=== PATIENT | female | born 1940 | race Caucasian/White ===

== ENCOUNTER 2017-06-13 12:04 | Emergency (ER) | payer MEDICARE ==
[~2017-06-13 12:04] MED LIST: ALPR.25 PO; CALC600T10 PO; CETI10 PO; CHOL1CAP6 PO; DUONI NEB; FE T325T PO; FURO20 PO; GAS-125C7 PO; K-TA10TA5 PO; LEVO88TA2 PO; METO2.5T7 PO; MUCI600T PO; PERI8.6T PO; PRAV40 PO; PRED10 PO; PROB1TAB PO; STOO100T; TAB-TAB PO; Z.0.OXYGEN INH; [UNRECOGNIZED DRUG - CODE] PO
[2017-06-13 12:15] VITALS: BP 131/46; PULSE 116; RESP 22; TEMP 100.9; O2SAT 82; O2SAT 94
[2017-06-13] MEDS ORDERED: FURO1TAB62 PO ×2 (12:22)
[2017-06-13] MEDS ORDERED: LEVO88TA2 PO (12:22)
[2017-06-13] MEDS ORDERED: MONT10TA4 PO ×2 (12:22)
[2017-06-13] MEDS ORDERED: CHOL1TAB42 PO ×2 (12:22)
[2017-06-13] MEDS ORDERED: PRED5TAB PO ×2 (12:22)
[2017-06-13] MEDS ORDERED: FLUT1SPR5 EACH NARE ×2 (12:22)
[2017-06-13] MEDS ORDERED: COLA100C5 PO ×2 (12:22)
[2017-06-13] MEDS ORDERED: ALPR0.25 PO ×2 (12:22)
[2017-06-13] MEDS ORDERED: CLAR10CA3 PO ×2 (12:22)
[2017-06-13] MEDS ORDERED: AMIO200T PO ×2 (12:22)
[2017-06-13] MEDS ORDERED: DILT120C50 PO ×2 (12:22)
[2017-06-13] MEDS ORDERED: VENTAER INH ×2 (12:22)
[2017-06-13] MEDS ORDERED: APIX2.5T PO ×2 (12:22)
[2017-06-13] MEDS ORDERED: POTA10CA PO ×2 (12:22)
[2017-06-13] MEDS ORDERED: IRON18TA PO ×2 (12:22)
[2017-06-13] MEDS ORDERED: PRAV40TA2 PO ×2 (12:22)
[2017-06-13] MEDS ORDERED: FAMO1TAB37 PO ×2 (12:22)
[2017-06-13 12:37] VITALS: O2SAT 92
[2017-06-13 12:38] VITALS: BP 117/59; PULSE 107; RESP 18; TEMP 101; O2SAT 92
--- NOTE | 2017-06-13 12:41 | PD ---
HPI Chief Complaint: Respiratory Symptoms Time Seen by Provider: 12:17 Travel History International Travel<30 days: No Contact w/Intl Traveler<30days: No Traveled to known affect area: No History of Present Illness HPI The patient was seen and examined in the presence of the nurse. This patient complains of shortness of breath. Severity is moderate. Duration 3 days. She is oxygen dependent COPD and CHF. She is on Eliquis for A. fib. She has increased swelling in her legs as well as some redness and warmth in the left lower leg for a few days near where she got a cut. She no longer smokes. She denies fever or productive cough. No alleviating factors. 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) Psychiatric: No Reproductive: No Respiratory: Yes (SEVERE COPD, ON O2 2 LITERS 24/7, HX OF PNEUMONIA, HX OF SMOKING) Myocardial Infarction: No Renal Failure: No Seizures: No Sleep Apnea: No Thyroid Disease: Yes (HYPO) Ulcer: No ?: Not Menopausal: Yes Past Surgical History Abdominal Surgery: Yes (CHOLECYSTECTOMY 1972) AICD: No Body Medical Devices: lens bilat Cardiac Surgery: No Cholecystectomy: Yes Ear Surgery: No Endocrine Surgery: No Eye Surgery: Yes (LISSETTE CATARACT SURGERY) Genitourinary Surgery: No Gynecologic Surgery: No Joint Replacement: No Oral Surgery: No Pacemaker: No Thoracic Surgery: Yes (SPONTANEOUS PNEUMOTHORAX X 2, CHEST TUBE) Social History Alcohol Use: Yes (occ) Tobacco Use: No (QUIT IN 2000) Substance Use: No Allergies-Medications (Allergen,Severity, Reaction): Coded Allergies: Sulfa (Sulfonamide Antibiotics) (Unverified Allergy, Severe, Hives, ) cefuroxime (Unverified Allergy, Severe, Hives, 01/25/17) ciprofloxacin (Unverified Allergy, Mild, RASH, 01/25/17) Reported Meds & Prescriptions Reported Meds & Active Scripts Active Reported Lasix (Furosemide) 20 Mg Tab 20 Mg PO DAILY Flonase Nasal [place] (Fluticasone Nasal [place]) 50 Mcg/Act [place] 50 Mcg EACH NARE DAILY Pepcid (Famotidine) 20 Mg Tab 20 Mg PO HS Colace (Docusate Sodium) 100 Mg Capsule 100 Mg PO DAILY Diltiazem CD 24 HR 120 Mg Caper 120 Mg PO DAILY Claritin (Loratadine) 10 Mg Cap 10 Mg PO DAILY Vitamin D-3 (Cholecalciferol) 2,000 Unit Tab 1 Tab PO BID Prednisone 5 Mg Tab 5 Mg PO DAILY Pravastatin 40 Mg Tab 40 Mg PO HS Potassium Chloride ER (Potassium Chloride) 10 Meq Cap 10 Meq PO BID Montelukast (Montelukast Sodium) 10 Mg Tab 10 Mg PO HS Levothyroxine (Levothyroxine Sodium) 88 Mcg Tab 88 Mcg PO DAILY Iron (Ferrous Sulfate) 18 Mg Tab 65 Mg PO Eliquis (Apixaban) 2.5 Mg Tab 2.5 Mg PO BID Amiodarone (Amiodarone HCl) 200 Mg Tab 200 Mg PO DAILY Alprazolam 0.25 Mg Tab 0.25 Mg PO TID PRN Ventolin Hfa 18 GM Inh (Albuterol Sulfate) 90 Mcg/Act Aer 2 Puff INH Q4H PRN Review of Systems General / Constitutional: No: Fever Eyes: No: Visual changes HENT: No: Headaches Cardiovascular: Positive: Edema, No: Chest Pain or Discomfort Respiratory: Positive: Shortness of Breath Gastrointestinal: No: Abdominal Pain Genitourinary: No: Dysuria Musculoskeletal: Positive: Edema, No: Pain Skin: No Rash Neurologic: No: Weakness Psychiatric: No: Depression Endocrine: No: Polydipsia Hematologic/Lymphatic: No: Easy Bruising Physical Exam Narrative GENERAL: Thin elderly well-developed patient in no apparent distress. SKIN: Focused skin assessment reveals no rash and nodules. Skin is Warm and dry. HEAD: Atraumatic. Normocephalic. EYES: Pupils equal and round. No scleral icterus. No injection or drainage. ENT: No nasal bleeding or discharge. Mucous membranes pink and moist. NECK: Trachea midline. No JVD. CARDIOVASCULAR: Regular rate and rhythm. No murmur appreciated. RESPIRATORY: No accessory muscle use. Diminished breath sounds throughout with basilar crackles. No wheezing Breath sounds equal bilaterally. GASTROINTESTINAL: Abdomen soft, non-tender, nondistended. Hepatic and splenic margins not palpable. MUSCULOSKELETAL: No obvious deformities. No clubbing. No cyanosis. Pitting edema in the feet and ankles bilaterally. There is a wound in the left anterior distal tibia region. There is some redness and warmth around that. No calf tenderness NEUROLOGICAL: Awake and alert. No obvious cranial nerve deficits. Motor grossly within normal limits. Normal speech. PSYCHIATRIC: Appropriate mood and affect; insight and judgment normal. Data Data Last Documented VS Vital Signs Date Time Temp Pulse Resp B/P (MAP) Pulse Ox O2 Delivery O2 Flow Rate FiO2 06/13/17 13:42 94 Nasal Cannula 2.00 06/13/17 12:38 101.0 107 18 117/59 (78) Orders Orders Complete Blood Count With Diff (06/13/17 12:34) Basic Metabolic Panel (Bmp) (06/13/17 12:34) B-Type Natriuretic Peptide (06/13/17 12:34) Iv Access Insert/Monitor (06/13/17 12:34) Electrocardiogram (06/13/17 12:34) Ecg Monitoring (06/13/17 12:34) Oximetry (06/13/17 12:34) Oxygen Administration (06/13/17 12:34) Chest, Single Ap (06/13/17 12:34) Sodium Chloride 0.9% Flush (Ns Flush) (06/13/17 12:45) Furosemide Inj (Lasix Inj) (06/13/17 12:45) Albuterol-Ipratropium Neb (Duoneb Neb) (06/13/17 13:45) Albuterol-Ipratropium Neb (Duoneb Neb) (06/13/17 13:45) Arterial Blood Gas (Abg) (06/13/17 ) Potassium Chloride Eff (K-Lyte Cl Eff) (06/13/17 14:15) Doxycycline (Vibramycin) (06/13/17 14:15) Labs Laboratory Tests Test 06/13/17 12:51 06/13/17 14:15 White Blood Count 20.0 TH/MM3 Red Blood Count 3.96 MIL/MM3 Hemoglobin 11.5 GM/DL Hematocrit 36.5 % Mean Corpuscular Volume 92.2 FL Mean Corpuscular Hemoglobin 29.1 PG Mean Corpuscular Hemoglobin Concent 31.6 % Red Cell Distribution Width 12.4 % Platelet Count 157 TH/MM3 Mean Platelet Volume 6.7 FL Neutrophils (%) (Auto) 92.8 % Lymphocytes (%) (Auto) 1.3 % Monocytes (%) (Auto) 3.2 % Eosinophils (%) (Auto) 0.1 % Basophils (%) (Auto) 2.6 % Neutrophils # (Auto) 18.6 TH/MM3 Lymphocytes # (Auto) 0.3 TH/MM3 Monocytes # (Auto) 0.6 TH/MM3 Eosinophils # (Auto) 0.0 TH/MM3 Basophils # (Auto) 0.5 TH/MM3 CBC Comment AUTO DIFF Differential Total Cells Counted 100 Neutrophils % (Manual) 82 % Band Neutrophils % 14 % Lymphocytes % 2 % Monocytes % 2 % Neutrophils # (Manual) 19.2 TH/MM3 Differential Comment FINAL DIFF MANUAL Platelet Estimate NORMAL Platelet Morphology Comment NORMAL Red Cell Morphology Comment NORMAL Blood Urea Nitrogen 26 MG/DL Creatinine 1.10 MG/DL Random Glucose 97 MG/DL Calcium Level 8.6 MG/DL Sodium Level 138 MEQ/L Potassium Level 2.6 MEQ/L Chloride Level 88 MEQ/L Carbon Dioxide Level 44.5 MEQ/L Anion Gap 6 MEQ/L Estimat Glomerular Filtration Rate 48 ML/MIN B-Type Natriuretic Peptide 53 PG/ML Blood Gas Puncture Site LT RADIAL Blood Gas Patient Temperature 98.6 Blood Gas HCO3 47 mmol/L Blood Gas Base Excess 21.7 mmol/L Blood Gas Oxygen Saturation 90 % Arterial Blood pH 7.46 Arterial Blood Partial Pressure CO2 68 mmHG Arterial Blood Partial Pressure O2 65 mmHG Arterial Blood Oxygen Content 14.4 Vol % Arterial Blood Carboxyhemoglobin 2.1 % Arterial Blood Methemoglobin 1.1 % Blood Gas Hemoglobin 11.4 G/DL Oxygen Delivery Device NASAL CANNULA Blood Gas Liter Flow 2 L/M MDM Medical Decision Making Medical Screen Exam Complete: Yes Emergency Medical Condition: Yes Medical Record Reviewed: Yes Differential Diagnosis CHF exacerbation, COPD, pneumonia Narrative Course I have reviewed the patient's electronic medical record. IV placed Review her 40 mg IV Lasix Patient was 3 L around the clock at home which she is currently wearing and in the low 90s Reviewed her chest x-ray which is clear, no pulmonary edema or infiltrate CBC shows leukocytosis Metabolic profile shows significant elevated bicarbonate and hypokalemia which is replaced orally and on prescription BNP is low at 53 I gave her a couple of nebulizer treatments I reviewed her ABG which shows pH 7.46 with elevated CO2 and bicarbonate This patient has chronic respiratory acidosis but metabolically compensated She is not acidemic at all On recheck she does not look short of breath I think she is at baseline Her last ABG I compared his from 10 years old I gave her potassium replacement and a start of antibiotic therapy for mild left leg cellulitis. She does not look septic or toxic. I don't really think she needs to be inpatient at this time Should she worsen that could change She has symmetric leg edema but no pulmonary edema She has significant chronic problems which are not going to be fixable in the ER or hospital but manageable as best she can do long-term Diagnosis Primary Impression: COPD (chronic obstructive pulmonary disease) Qualified Codes: J44.9 - Chronic obstructive pulmonary disease, unspecified Additional Impressions: Leg edema Left leg cellulitis Hypokalemia Additional Instructions: The patient was advised to follow up with their physician and return if they worsen. Take antibiotics for one week Take one time her placement potassium dose but continue her long-term potassium therapy The patient was advised to follow up with their physician and return if they worsen. Med/Other Pt SpecificInfo: Prescription(s) given Disposition: DISCHARGE HOME Condition: Stable Paul Kidd MD Jun 13, 2017 12:41
[2017-06-13] MEDS ORDERED: FUROSEMIDE 40 MG/4 ML VIAL IVP ONE (12:45)
[2017-06-13] MEDS ORDERED: SODIUM CHLORIDE 0.9% FLUSH 10 ML FLUSH IVF PRN (12:45)
[2017-06-13 13:06] LABS: AUTOMATED NEUTROPHIL # 18.6 TH/MM3 (1.8-7.7); BASOPHIL # 0.5 TH/MM3 (0-0.2); BASOPHIL % 2.6 % (0.0-2.0); EOSINOPHIL % 0.1 % (0.0-4.0); HEMATOCRIT 36.5 % (35.0-46.0); HEMOGLOBIN 11.5 GM/DL (11.6-15.3); LYMPH % 1.3 % (9.0-44.0); LYMPHOCYTE # 0.3 TH/MM3 (1.0-4.8); MEAN CELL VOLUME 92.2 FL (80.0-100.0); MEAN CORPUSCULAR HEMOGLOBIN 29.1 PG (27.0-34.0); MEAN CORPUSCULAR HGB CONC 31.6 % (32.0-36.0); MEAN PLATELET VOLUME 6.7 FL (7.0-11.0); MONO % 3.2 % (0.0-8.0); MONOCYTE # 0.6 TH/MM3 (0-0.9); NEUT % 92.8 % (16.0-70.0); PLATELET COUNT 157 TH/MM3 (150-450); RED BLOOD COUNT 3.96 MIL/MM3 (4.00-5.30); RED CELL DISTRIBUTION WIDTH 12.4 % (11.6-17.2)
--- NOTE | 2017-06-13 13:06 | RADRPT ---
EXAM DATE/TIME: 06/13/2017 12:40 [facility] COMPARISON: CHEST SINGLE AP, April 07, 2014, 21:37. INDICATIONS : Shortness of breath. MEDICAL HISTORY : Chronic obstructive pulmonary disease. SURGICAL HISTORY : None. ENCOUNTER: Initial ACUITY: 1 day PAIN SCORE: 0/10 LOCATION: Bilateral chest FINDINGS: The heart size is normal. The lungs are clear. No effusion is seen. Incidental note is made of a azyg ous fissure which is a normal variant. CONCLUSION: No acute disease. Dominik Delgadillo MD on June 13, 2017 at 13:04 Board Certified Radiologist. This report was verified electronically.
[2017-06-13 13:34] LABS: CALCIUM 8.6 MG/DL (8.5-10.1); CREATININE 1.1 MG/DL (0.50-1.00)
[2017-06-13 13:35] LABS: BICARBONATE 44.5 MEQ/L (21.0-32.0)
[2017-06-13 13:38] LABS: BANDS 14 % (0-6); LYMPHOCYTES 2 % (9-44); MONOCYTES 2 % (0-8); NEUTROPHIL # MANUAL DIFF 19.2 TH/MM3 (1.8-7.7); POLYS (SEG NEUTROPHILS) 82 % (16-70)
[2017-06-13 13:42] VITALS: O2SAT 94
[2017-06-13] MEDS ORDERED: RESP: ALBUTEROL 2.5 MG/IPRATROPIUM 0.5 MG NEB (SCH) NEB ONE ×2 (13:45)
[2017-06-13] MEDS ORDERED: POTASSIUM CHLORIDE 25 MEQ EFFERVESCENT TAB PO ONE (14:15)
[2017-06-13] MEDS ORDERED: DOXYCYCLINE HYCLATE 100 MG CAP PO ONE (14:15)
[2017-06-13] MEDS ORDERED: DOXY100C PO (14:39)
[2017-06-13] MEDS ORDERED: KLORCONEF PO (14:39)
[2017-06-13 15:00] VITALS: BP 100/51; PULSE 115; RESP 20; O2SAT 93
== END 2017-06-13 15:41 | disposition home or self-care (01) ==
LOC: PHED 12:04
DX: J44.9 Chronic obstructive pulmonary disease, unspecified (principal); R60.0 Localized edema; L03.116 Cellulitis of left lower limb; E87.6 Hypokalemia; D72.829 Elevated white blood cell count, unspecified; I50.9 Heart failure, unspecified; I48.91 Unspecified atrial fibrillation; I10 Essential (primary) hypertension; E07.9 Disorder of thyroid, unspecified; K21.9 Gastro-esophageal reflux disease without esophagitis; E78.00 Pure hypercholesterolemia, unspecified; Z99.81 Dependence on supplemental oxygen; Z79.01 Long term (current) use of anticoagulants
CPT/HCPCS: 36600; 71045; 80048; 82805; 83880; 85007; 85027; 94640; 94664; 96374; 99284; J1940

== ENCOUNTER 2017-06-17 18:50 | Inpatient (IN) | payer MEDICARE ==
[~2017-06-17] VITALS: Ht 162.6 cm; Wt 42.9 kg
[~2017-06-17 18:50] MED LIST changes: +ALPR0.25 PO; +AMIO200T PO; +APIX2.5T PO; +CHOL1TAB42 PO; +CLAR10CA3 PO; +COLA100C5 PO; +DILT120C50 PO; +DOXY100C PO; +FAMO1TAB37 PO; +FLUT1SPR5 EACH NARE; +FURO1TAB62 PO; +IRON18TA PO; +KLORCONEF PO; +MONT10TA4 PO; +POTA10CA PO; +PRAV40TA2 PO; +PRED5TAB PO; +VENTAER INH
[2017-06-17 18:58] VITALS: BP 133/60; PULSE 94; RESP 18; TEMP 97.8; O2SAT 93
--- NOTE | 2017-06-17 19:19 | PD ---
HPI Chief Complaint: Skin Problem Time Seen by Provider: 19:07 Travel History International Travel<30 days: No Contact w/Intl Traveler<30days: No Traveled to known affect area: No History of Present Illness HPI The patient is a 76-year-old female that had cellulitis and was treated with doxycycline on the first of this month. She is taking her medications correctly but the area of cellulitis in both legs is spreading, becoming more painful and shows increased swelling. The patient is on a course for atrial fibrillation. She states she is elevating the legs and this makes him feel much better. She denies any fever. PFSH Past Medical History Arthritis: No Asthma: Yes Autoimmune Disease: No Heart Rhythm Problems: No Cancer: No Cardiovascular Problems: No High Cholesterol: Yes Chest Pain: No Congestive Heart Failure: No COPD: Yes Cerebrovascular Accident: No Diabetes: No Diminished Hearing: No Endocrine: Yes Gastrointestinal Disorders: Yes (ACID REFLUX) GERD: Yes Glaucoma: No Genitourinary: No Headaches: No Hepatitis: No Hiatal Hernia: No Hypertension: Yes Immune Disorder: No Implanted Vascular Access Dvce: Yes Kidney Stones: No Musculoskeletal: Yes (OSTEOPOROSIS) Neurologic: Yes (NUMBNESS AND TINGLING R HAND) Psychiatric: No Reproductive: No Respiratory: Yes (COPD, WEARS O2 CONTINUOUSLY) Myocardial Infarction: No Renal Failure: No Seizures: No Sleep Apnea: No Thyroid Disease: Yes (HYPO) Ulcer: No ?: Not Menopausal: Yes Past Surgical History Abdominal Surgery: Yes (CHOLECYSTECTOMY 1972) AICD: No Body Medical Devices: lens bilat Cardiac Surgery: No Cholecystectomy: Yes Ear Surgery: No Endocrine Surgery: No Eye Surgery: Yes (LISSETTE CATARACT SURGERY) Genitourinary Surgery: No Gynecologic Surgery: No Insulin Pump: No Joint Replacement: No Neurologic Surgery: No Oral Surgery: No Pacemaker: No Thoracic Surgery: Yes (SPONTANEOUS PNEUMOTHORAX X 2, CHEST TUBE) Other Surgery: Yes Social History Alcohol Use: Yes (occ) Tobacco Use: No (QUIT IN 2000) Substance Use: No Allergies-Medications (Allergen,Severity, Reaction): Coded Allergies: Sulfa (Sulfonamide Antibiotics) (Verified Allergy, Severe, Hives, 06/17/17) cefuroxime (Verified Allergy, Severe, Hives, 06/17/17) ciprofloxacin (Verified Allergy, Mild, RASH, 06/17/17) Reported Meds & Prescriptions Reported Meds & Active Scripts Active Doxycycline Hyclate 100 Mg Cap 100 Mg PO BID Reported Lasix (Furosemide) 20 Mg Tab 20 Mg PO DAILY Flonase Nasal [place] (Fluticasone Nasal [place]) 50 Mcg/Act [place] 50 Mcg EACH NARE DAILY Pepcid (Famotidine) 20 Mg Tab 20 Mg PO HS Colace (Docusate Sodium) 100 Mg Capsule 100 Mg PO DAILY Diltiazem CD 24 HR 120 Mg Caper 120 Mg PO DAILY Claritin (Loratadine) 10 Mg Cap 10 Mg PO DAILY Vitamin D-3 (Cholecalciferol) 2,000 Unit Tab 1 Tab PO BID Prednisone 5 Mg Tab 5 Mg PO DAILY Pravastatin 40 Mg Tab 40 Mg PO HS Potassium Chloride ER (Potassium Chloride) 10 Meq Cap 10 Meq PO BID Montelukast (Montelukast Sodium) 10 Mg Tab 10 Mg PO HS Levothyroxine (Levothyroxine Sodium) 88 Mcg Tab 88 Mcg PO DAILY Iron (Ferrous Sulfate) 18 Mg Tab 65 Mg PO Eliquis (Apixaban) 2.5 Mg Tab 2.5 Mg PO BID Amiodarone (Amiodarone HCl) 200 Mg Tab 200 Mg PO DAILY Alprazolam 0.25 Mg Tab 0.25 Mg PO TID PRN Ventolin Hfa 18 GM Inh (Albuterol Sulfate) 90 Mcg/Act Aer 2 Puff INH Q4H PRN Review of Systems Except as stated in HPI: all other systems reviewed are Neg Physical Exam Narrative GENERAL: The patient is alert, oriented 3 and slight apparent distress with her cellulitis of both legs. Her vital signs are normal. SKIN: Focused skin assessment warm/dry. There is erythema of both lower legs, left greater than right. In addition, despite the antibiotic several dark, apparent blood filled, blebs appeared on both legs. One on the left leg has ruptured and appears healing. These range in size from 2-3 cm in diameter. No lymphadenitis is noted. HEAD: Atraumatic. Normocephalic. EYES: Pupils equal and round. No scleral icterus. No injection or drainage. ENT: No nasal bleeding or discharge. Mucous membranes pink and moist. NECK: Trachea midline. No JVD. CARDIOVASCULAR: Regular rate and rhythm. No murmur appreciated. RESPIRATORY: No accessory muscle use. Clear to auscultation. Breath sounds equal bilaterally. GASTROINTESTINAL: Abdomen soft, non-tender, nondistended. Hepatic and splenic margins not palpable. MUSCULOSKELETAL: No obvious deformities. No clubbing. No cyanosis. No edema. NEUROLOGICAL: Awake and alert. No obvious cranial nerve deficits. Motor grossly within normal limits. Normal speech. PSYCHIATRIC: Appropriate mood and affect; insight and judgment normal. Data Data Last Documented VS Vital Signs Date Time Temp Pulse Resp B/P (MAP) Pulse Ox O2 Delivery O2 Flow Rate FiO2 06/17/17 19:16 89 20 06/17/17 18:58 97.8 133/60 (84) 93 Orders Orders Electrocardiogram (06/17/17 19:13) Complete Blood Count With Diff (06/17/17 19:13) Comprehensive Metabolic Panel (06/17/17 19:13) B-Type Natriuretic Peptide (06/17/17 19:13) Urinalysis - C+S If Indicated (06/17/17 19:13) Potassium Chloride (Kcl) (06/17/17 20:15) Vancomycin Inj (Vancomycin Inj) (06/17/17 20:15) Admit Order (Ed Use Only) (06/17/17 20:51) Labs Laboratory Tests Test 06/17/17 19:40 White Blood Count 7.0 TH/MM3 Red Blood Count 3.91 MIL/MM3 Hemoglobin 11.6 GM/DL Hematocrit 36.3 % Mean Corpuscular Volume 93.1 FL Mean Corpuscular Hemoglobin 29.8 PG Mean Corpuscular Hemoglobin Concent 32.0 % Red Cell Distribution Width 11.9 % Platelet Count 188 TH/MM3 Mean Platelet Volume 6.6 FL Neutrophils (%) (Auto) 86.8 % Lymphocytes (%) (Auto) 6.6 % Monocytes (%) (Auto) 6.0 % Eosinophils (%) (Auto) 0.5 % Basophils (%) (Auto) 0.1 % Neutrophils # (Auto) 6.1 TH/MM3 Lymphocytes # (Auto) 0.5 TH/MM3 Monocytes # (Auto) 0.4 TH/MM3 Eosinophils # (Auto) 0.0 TH/MM3 Basophils # (Auto) 0.0 TH/MM3 CBC Comment DIFF FINAL Differential Comment Blood Urea Nitrogen 36 MG/DL Creatinine 1.40 MG/DL Random Glucose 98 MG/DL Total Protein 7.4 GM/DL Albumin 3.2 GM/DL Calcium Level 9.3 MG/DL Alkaline Phosphatase 87 U/L Aspartate Amino Transf (AST/SGOT) 34 U/L Alanine Aminotransferase (ALT/SGPT) 36 U/L Total Bilirubin 0.4 MG/DL Sodium Level 136 MEQ/L Potassium Level 3.3 MEQ/L Chloride Level 88 MEQ/L Carbon Dioxide Level 43.4 MEQ/L Anion Gap 5 MEQ/L Estimat Glomerular Filtration Rate 37 ML/MIN B-Type Natriuretic Peptide 18 PG/ML MDM Medical Decision Making Medical Screen Exam Complete: Yes Emergency Medical Condition: Yes Medical Record Reviewed: Yes Differential Diagnosis Cellulitis, abscess, lymphadenitis Narrative Course The patient has failed outpatient treatment for cellulitis. The cellulitis has grown in size, become more painful and the swelling has increased. I discussed the patient with Dr. Woodrow Macias, the patient will be admitted to her. Physician Communication Physician Communication I discussed the patient with Dr. Woodrow Macias. Diagnosis Primary Impression: Bilateral lower leg cellulitis Admitting Information Admitting Physician Requests: Admit Mayo Christianson MD Jun 17, 2017 19:19
[2017-06-17 19:51] LABS: AUTOMATED NEUTROPHIL # 6.1 TH/MM3 (1.8-7.7); BASOPHIL % 0.1 % (0.0-2.0); EOSINOPHIL % 0.5 % (0.0-4.0); HEMATOCRIT 36.3 % (35.0-46.0); HEMOGLOBIN 11.6 GM/DL (11.6-15.3); LYMPH % 6.6 % (9.0-44.0); LYMPHOCYTE # 0.5 TH/MM3 (1.0-4.8); MEAN CELL VOLUME 93.1 FL (80.0-100.0); MEAN CORPUSCULAR HEMOGLOBIN 29.8 PG (27.0-34.0); MEAN PLATELET VOLUME 6.6 FL (7.0-11.0); MONOCYTE # 0.4 TH/MM3 (0-0.9); NEUT % 86.8 % (16.0-70.0); PLATELET COUNT 188 TH/MM3 (150-450); RED BLOOD COUNT 3.91 MIL/MM3 (4.00-5.30); RED CELL DISTRIBUTION WIDTH 11.9 % (11.6-17.2)
[2017-06-17 20:01] LABS: CHLORIDE 88 MEQ/L (98-107); SODIUM (NA) 136 MEQ/L (136-145)
[2017-06-17 20:04] LABS: CALCIUM 9.3 MG/DL (8.5-10.1)
[2017-06-17 20:05] LABS: ALBUMIN 3.2 GM/DL (3.4-5.0); BICARBONATE 43.4 MEQ/L (21.0-32.0); BLOOD UREA NITROGEN 36 MG/DL (7-18); GLUCOSE,RANDOM 98 MG/DL (74-106)
[2017-06-17 20:08] LABS: ALT (GPT) 36 U/L (10-53); AST (GOT) 34 U/L (15-37); GLOMERULAR FILTRATION RATE 37 ML/MIN (>89)
[2017-06-17 20:09] LABS: TOTAL BILIRUBIN ADULT 0.4 MG/DL (0.2-1.0); TOTAL PROTEIN 7.4 GM/DL (6.4-8.2)
[2017-06-17 20:11] LABS: ALKALINE PHOSPHATASE 87 U/L (45-117)
[2017-06-17] MEDS ORDERED: VANCOMYCIN INJ 1,000 MG in SODIUM CHLOR 0.9% 250 ML INJ 250 ML IV ONE (20:15)
[2017-06-17] MEDS ORDERED: POTASSIUM CHLORIDE 20 MEQ CONTROLLED RELEASE TAB PO ONE (20:15)
[2017-06-17 21:00] VITALS: BP 142/70; PULSE 85; RESP 16; O2SAT 96
[2017-06-17 21:24] LABS: BILIRUBIN, URINE NEG (NEG); BLOOD, URINE SMALL (NEG); GLUCOSE,URINE NEG (NEG); KETONE, URINE NEG (NEG); NITRITE,URINE NEG (NEG); URINE LEUKOCYTE ESTERASE NEG (NEG)
[2017-06-17 21:33] LABS: URINE COLOR YELLOW (YELLW/STRAW); WBC, URINE 0-2 /hpf (0-5)
[2017-06-17 21:34] LABS: SQUAMOUS EPITHELIAL CELL URINE 0-5 /hpf (0-5)
[2017-06-17] MEDS ORDERED: Vancomycin Consult Pharmacy 1 EA OTHER SCH (21:45)
[2017-06-17] MEDS ORDERED: ACETAMINOPHEN 500 MG CPLT PO PRN (21:45)
[2017-06-17 22:10] VITALS: BP 138/66; PULSE 89; RESP 18; O2SAT 98
[2017-06-17] MEDS: RESP: ALBUTEROL 2.5 MG/IPRATROPIUM 0.5 MG NEB (SCH) NEB (23:00)
[2017-06-17 23:07] VITALS: O2SAT 99
[2017-06-17] MEDS: PRAVASTATIN SOD 40 MG TAB PO SCH (23:20)
[2017-06-18] MEDS: CHOLECALCIFEROL (VIT D3) 1000 UNIT TAB PO SCH ×3 (00:39→20:50)
[2017-06-18 01:13] VITALS: BP 110/56; PULSE 82; RESP 16; TEMP 97; O2SAT 91
[2017-06-18] MEDS: RESP: ALBUTEROL 2.5 MG/IPRATROPIUM 0.5 MG NEB (SCH) NEB ×3 (02:58→14:58)
[2017-06-18] MEDS: ALPRAZolam 0.25 MG TAB PO PRN ×2 (06:16→22:52)
[2017-06-18] MEDS: RESP: ALBUTEROL 2.5 MG/IPRATROPIUM 0.5 MG NEB (PRN) NEB ×2 (06:23→22:01)
[2017-06-18 06:42] LABS: BASOPHIL % 0.3 % (0.0-2.0); EOSINOPHIL % 0.4 % (0.0-4.0); HEMATOCRIT 31.7 % (35.0-46.0); HEMOGLOBIN 9.9 GM/DL (11.6-15.3); LYMPH % 8.8 % (9.0-44.0); LYMPHOCYTE # 0.6 TH/MM3 (1.0-4.8); MEAN CELL VOLUME 92.6 FL (80.0-100.0); MEAN CORPUSCULAR HEMOGLOBIN 28.9 PG (27.0-34.0); MEAN CORPUSCULAR HGB CONC 31.3 % (32.0-36.0); MEAN PLATELET VOLUME 6.8 FL (7.0-11.0); MONO % 8.3 % (0.0-8.0); MONOCYTE # 0.6 TH/MM3 (0-0.9); NEUT % 82.2 % (16.0-70.0); PLATELET COUNT 186 TH/MM3 (150-450); RED BLOOD COUNT 3.43 MIL/MM3 (4.00-5.30); RED CELL DISTRIBUTION WIDTH 12.3 % (11.6-17.2); WHITE BLOOD COUNT 7.2 TH/MM3 (4.0-11.0)
[2017-06-18 06:51] LABS: BICARBONATE 44.5 MEQ/L (21.0-32.0); CALCIUM 8.8 MG/DL (8.5-10.1)
[2017-06-18 06:54] LABS: CREATININE 1.2 MG/DL (0.50-1.00)
[2017-06-18] MEDS ORDERED: LEVOTHYROXINE SODIUM 88 MCG TAB PO SCH (07:00)
[2017-06-18 08:56] VITALS: BP 112/55; PULSE 80; RESP 16; TEMP 97.3; O2SAT 94
[2017-06-18] MEDS: FLUTICASONE PROPIONATE 50 MCG/ACT 16 GM NASAL SPRAY EACH NARE SCH (09:00)
[2017-06-18] MEDS ORDERED: POTASSIUM CHLORIDE 10 MEQ CAP PO SCH (09:00)
[2017-06-18] MEDS: SODIUM CHLORIDE 0.9% FLUSH 10 ML FLUSH IV FLUSH SCH ×2 (09:55→20:50)
[2017-06-18] MEDS: DILTIAZEM-CD 120 MG CAP ER PO SCH (09:55)
[2017-06-18] MEDS: DOCUSATE SODIUM 100 MG CAP PO SCH (09:55)
[2017-06-18] MEDS: AMIODARONE 200 MG TAB PO SCH (09:56)
[2017-06-18] MEDS: APIXABAN 2.5 MG TABLET PO SCH ×2 (09:56→20:50)
[2017-06-18] MEDS: LORATADINE 10 MG TAB PO SCH (09:56)
[2017-06-18] MEDS: predniSONE 5 MG TAB PO SCH (09:56)
[2017-06-18] MEDS: FUROSEMIDE 20 MG TAB PO SCH (09:56)
[2017-06-18] MEDS: POTASSIUM CHLORIDE 10 MEQ CONTROLLED RELEASE TAB PO SCH ×2 (09:56→20:50)
--- NOTE | 2017-06-18 12:47 | EKG ---
Date Performed: 06/17/2017 Time Performed: 19:27:24 PTAGE: 76 years EKG: BASELINE ARTIFACT MAKES IT INTERPRETATION DIFFICULT THERE APPEARS TO BE Sinus rhythm CANNOT INTERPRET ST-T SEGMENT DUE TO THE MARKED UNDULATIONS OF THE BASELINES. Compared to previous t racing, no gross changes have occurred, but an EKG of improved quality would be of benefit. BORDERLIN E ECG PREVIOUS TRACING : 04/07/2014 22.49 DOCTOR: Jamey Guthrie Interpretating Date/Time 06/18/2017 12:47:14
[2017-06-18] MEDS ORDERED: ACETAMINOPHEN/HYDROcodone 325 MG/5 MG TAB PO PRN (13:45)
[2017-06-18 14:03] VITALS: BP 119/62; PULSE 79; RESP 18; TEMP 97.3; O2SAT 92
[2017-06-18 14:07] LABS: MAGNESIUM 1.9 MG/DL (1.5-2.5)
--- NOTE | 2017-06-18 15:31 | MH ---
cc: GINI REDDY DATE OF ADMISSION: 06/17/2017 ADMITTING DIAGNOSIS Cellulitis. HISTORY OF PRESENT ILLNESS Ms. Ledbetter is a very pleasant 76-year-old female who presented to the emergency room for the second time in the last five days. According to the patient, she initially went to the emergency room June 13 for increased shortness of breath as well as some redness and warmth in the left lower leg near a cut. At that time, she was diagnosed with cellulitis and discharged on doxycycline. The patient has a history of chronic lower extremity edema that was also present at the time. She says she actually had cut her leg with her own long fingernail while getting dressed a couple of days prior. She originally had a clear serous drainage and then she developed the redness and inflammation around where she injured herself. She did followup with her primary care doctor and continued on her medications. However, she states that she started developing some what looked like blood blisters; this also started developing on her right leg as well. These were very painful and the one her right leg she said she started noticing some purulent drainage coming from it when she cleaned herself. She also developed some excruciatingly sharp stabbing pain when she moved her legs or tried to stand on them. These were from the bottom of her feet up to both legs. These prompted her to return to the emergency room where she was felt to have bilateral cellulitis and thus admitted. She does state she has chronic lower extremity edema. She has had this for several years, this is not new. She states she normally has very thin skin. She is steroid dependent for her COPD and she normally bruises very easily. However, in February of 2017 she apparently was very ill and at that time diagnosed with atrial fibrillation and placed on Eliquis. She says that since then the bruising has become even more pronounced. She is able to simply bruise from leaning her hand for an amount of time even just on her face, after she has done that and just removes her hand she will subsequently develop a bruise. She has never had bleeding issues in the past. However, she does say that she is anemic and is chronically on iron replacement and B12 for this. She is not able to tell me what the cause of her anemia is. Aside from this redness in her legs and the pain, she has been pretty much at her baseline. PAST MEDICAL HISTORY 1. Severe COPD, oxygen and steroid dependent. She does follow with Dr. Larkin and he does have her on chronic antibiotic suppression with azithromycin 250 Tuesday, Tuesday and Tuesday. 2. Acid reflux. 3. Osteoporosis. 4. Hypothyroidism and recently had her thyroid medications adjusted. 5. She states she suffers from chronic rhinitis and will occasionally use the fluticasone. 6. Hyperlipidemia. 7. Anxiety. 8. Hypokalemia. 9. Reflux. 10. Vitamin D deficiency. 11. She has had a right wrist fracture in the past that was set, she refused surgery. PAST SURGICAL HISTORY 1. Cataract surgery. 2. She has had chest tube insertion for spontaneous pneumothorax. 3. Cholecystectomy. ALLERGIES SULFA AND CIPRO - SOUNDS LIKE THEY CAUSED A RASH. SHE TELLS ME SHE IS ALLERGIC A STATIN AND I BELIEVE SHE IS ALLERGIC TO LIPITOR. HER CHART IN THE HOSPITAL SAYS SHE IS ALLERGIC TO CEFUROXIME. SHE IS NOT ABLE TO TELL ME WHETHER OR NOT SHE IS ALLERGIC TO THAT OR WHERE THAT INFORMATION WAS OBTAINED. IT LOOKS LIKE LOOKING THROUGH HER [facility] CHART THAT SHE HAS BEEN ON CEPHALOSPORINS IN THE PAST. HABITS She consumes alcohol occasionally. She smoked two packs a day for many years. She will not pinpoint how many. She did to quit in 2000. SOCIAL HISTORY She [facility]. She has good friends that are with her in the room or neighbors and check on her on a regular basis. She has children in [place]. She is retired. 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 She does use a walker at home. REVIEW OF SYSTEMS See HPI. She denies any fevers or chills. She has a chronic nonproductive cough. Her breathing is at baseline at this point. She denies any increased shortness of breath. She does say that she is not a very active person either. She is fairly sedentary. She gets palpitations when she uses her nebulizer, otherwise she does not feel any palpitations. She denies any abdominal pain. She states she suffers from chronic constipation, she feels that is from her iron pills, otherwise she voids well. She has chronic lower extremity edema that she will sometimes wear compression stockings for. PHYSICAL EXAMINATION VITAL SIGNS: Temperature is 97.3, pulse of 79, respirations 18, blood pressure is 119/62, pulse ox on 2 liters of 92%. GENERAL: She is sitting and lying in the hospital bed. She is very pleasant and conversant, alert. She is wearing her oxygen. She speaks in full sentences. HEAD, EYES, EARS, NOSE AND THROAT: She is normocephalic, atraumatic. EOM is intact. She has got a clear oropharynx. She is wearing her dentures. NECK: Her neck is supple. LUNGS: Her lungs are diminished throughout but I hear no rhonchi, rales or wheezes. HEART: Her heart sounds regular. I hear no ectopy. ABDOMEN: Her abdomen has good bowel sounds in all four quadrants. She has no rebound or guarding. EXTREMITIES: Extremities show I would say +1 edema left greater on the right. She does have some rubor and erythema, it is hard to say, it almost looks like stasis dermatitis changes. She does have an area half-underwood shaped on the left aspect of her left lower extremity that shows some increased erythema and edema around it but has no drainage. She has some what looks like hemorrhagic bullae more pronounced on her right lower extremity, I would say it is maybe 4 cm in size. The edge of it does look like it might have some yellowish material under it but it currently is not draining. She has several areas of ecchymosis throughout her legs and her arms. She has a very large one on her instep. She says this is simply from leaning one leg again against another, she is accustomed to getting these. LABORATORY DATA Lab work when she was admitted showed a white count of 7, hemoglobin of 11.6, hematocrit of 36.3, platelet count of 188. Sodium was 136, potassium was 3.3, BUN was 36, creatinine was 1.4, carbon dioxide was 43.4, liver enzymes were normal, albumin was 3.2, BNP was 18. Her UA showed a small amount of blood. When she did present to the emergency room on June 13, her white count was 20 with a hemoglobin of 11.5 and hematocrit of 36.5, she did have bands. ASSESSMENT AND PLAN A 76-year-old female presenting with what appears to be outpatient failure of treatment for cellulitis. At this point, she has been admitted and placed on vancomycin which we will continue. For atrial fibrillation, we will continue on the Eliquis, amiodarone and Cardizem. Continue with all her home medications for her hypothyroidism as well as hypokalemia, her iron for her anemia, and I will continue to watch her blood count. She seems to have excessive bruising even with the Eliquis compounded on the prednisone. I am a little bit concerned about this. We will continue to monitor her blood count. I am not sure whether at this point this is an anticoagulant that she will be able to continue on. Further recommendations as the case develops. MD MELODIE Nguyen/BJF /1:47 PM /2:19 PM
[2017-06-18 17:16] VITALS: BP 113/71; PULSE 88; RESP 16; TEMP 96.8; O2SAT 91
[2017-06-18 20:00] VITALS: BP 125/57; PULSE 84; RESP 20; TEMP 98.3; O2SAT 93
[2017-06-18 20:10] VITALS: O2SAT 94
--- NOTE | 2017-06-18 20:35 | MB ---
cc: DIAZ SARAVIA MD DATE OF CONSULTATION 06/18/[address] Pastrana REASON FOR CONSULTATION Cellulitis of the lower extremities. HISTORY OF PRESENT ILLNESS This is a 76-year-old white female who presented to the emergency department with problems of the skin. The patient has erythema of both lower extremities. She was initially seen in the emergency department on June 13 and evaluated for COPD. At that time, she was noted to have erythema of the left anterior distal tibia region which had a tiny wound. The patient notes that she scraped the left anterior tibia with her fingernail accidentally. She was discharged home for follow up with her primary physician. The patient noted that she was in the bathroom showering and she had some drainage at the right distal tibia where she developed a blister with deep purple coloration. She states that a little bit of pus came from that location and then she started feeling severe pain and called her friends and she was brought to the emergency department for evaluation yesterday evening. She has no fever and the white blood cell count is normal. She was being treated with doxycycline outpatient. She has COPD and receives chronic antibiotic suppression with azithromycin three times a week. She was also recently started on Eliquis for atrial fibrillation. The Eliquis was started in February 2017. The patient states that she has severe pain in the legs. She states that whenever she tries to sit up in bed the pain worsens and she now finds it difficult to ambulate. PAST MEDICAL HISTORY 1. Hyperlipidemia, 2. Hypothyroidism, 3. Gastroesophageal reflux disease, 4. Osteoporosis, 5. Anxiety disorder, 6. Severe COPD, 7. History of cataract surgery 8. History of right wrist fracture 9. History of cholecystectomy, 10. History of chest tube insertion for spontaneous pneumothorax. ALLERGIES SULFA CIPRO CEFUROXIME MEDICATIONS 1. Vancomycin. 2. Ferrous sulfate. 3. Spiriva 4. Synthroid. 5. Pepcid. 6. Singulair. 7. [place] 5 8. Cordarone 9. Eliquis 10. Cardizem. 11. Colace. 12. Lasix. 13. Claritin. 14. Deltasone. 15. Flonase 16. Potassium 17. Vitamin D3. 18. Pravachol. 19. DuoNeb. SOCIAL HISTORY No tobacco. Occasional alcohol. No illicit drugs. FAMILY HISTORY Noncontributory. REVIEW OF SYSTEMS GENERAL: No fever or chills. HEENT: No visual blurring or diplopia. Denies soreness of the throat or difficulty swallowing. CARDIOVASCULAR: Denies chest pain or palpitations. RESPIRATORY: Denies cough. GASTROINTESTINAL: Denies nausea, vomiting or abdominal pain GENITOURINARY: Denies urgency, frequency. MUSCULOSKELETAL: Admits to pain of the lower extremities HEMATOPOIETIC: No easy bruising. INTEGUMENTARY: Denies skin rash. NEUROLOGIC: Denies problems with coordination or tremors. PSYCHIATRIC: Denies current mood changes. PHYSICAL EXAMINATION GENERAL: This is a well-developed slender female in no acute distress. She appears frail. She is awake and alert. VITAL SIGNS: Temperature of 96.8, BP 113/71, respirations 16, heart rate 88. HEENT: Head atraumatic. Extraocular movements grossly intact. No icterus. No conjunctival erythema. Oropharynx moist mucosa. No visible lesions. No thrush. NECK: Supple. No adenopathy or swelling. LUNGS: Clear diminished breath sounds HEART: Irregular rate and rhythm. No murmurs or rubs or gallops. ABDOMEN: Bowel sounds present, soft, nontender. RECTAL: Not performed. EXTREMITIES: The right leg has a large blister from lesion which is purpuric and looks like a hematoma at the inner aspect of the distal tibia. It is very tender on palpation and there is some white specks of white tissue at the periphery of the lesion which looks like hematoma. This is very tender. There is mild surrounding erythema. The left tibia has erythema from the below the knee down to the ankle and there are also some smaller purpuric nodular lesions including one at the distal inner aspect of the tibia and one at the posterior distal tibia and another tiny one at the mid tibia anteriorly. The left lower extremity is extremely warm and very tender on palpation. The left lower extremity has approximately 2+ edema. SKIN: No diffuse rash. NEUROLOGIC: No gross focal findings. PSYCHIATRIC: The patient is calm and cooperative. LABORATORY DATA WBC 7.2, platelets 186, 82% neutrophils, 8% lymphocytes. Hemoglobin 9.9. Creatinine 1.20, BUN 35, estimated GFR 44. IMPRESSION 1. Cellulitis of the left and right lower extremities with the left greater than right. 2. MULTIPLE ANTIBIOTICS ALLERGIES 3. Chronic kidney disease with possibly acute component as well. 4. Possible hematoma at the right distal tibia. RECOMMENDATIONS 1. Continue vancomycin 2. Add Unasyn adjusted for renal function 3. Obtain a culture of the right distal tibia area of blister and swelling if there is drainage from that lesion. 4. Monitor the response to antibiotic treatment. 5. Elevate both legs. Thank you for this consultation. The patient's progress will be monitored and further recommendations will be given upon followup if necessary. Diaz Saravia MD FD/ /7:39 PM /8:04 PM
[2017-06-18] MEDS: MONTELUKAST SODIUM 10 MG TAB PO SCH (20:50)
[2017-06-18] MEDS: PRAVASTATIN SOD 40 MG TAB PO SCH (20:50)
[2017-06-18] MEDS: FAMOTIDINE 20 MG TAB PO SCH (20:50)
[2017-06-18] MEDS: AMPICILLIN-SULBACTAM INJ 1,500 MG in SODIUM CHLORIDE 0.9% INJ 100 ML IV SCH (21:40)
[2017-06-19] VITALS (7 sets, daily range): BP systolic 112–134; BP diastolic 55–62; PULSE 77–92; RESP 16–20; TEMP 97–98.5; O2SAT 90–97
[2017-06-19] MEDS: AMPICILLIN-SULBACTAM INJ 1,500 MG in SODIUM CHLORIDE 0.9% INJ 100 ML IV SCH ×3 (05:21→20:06)
[2017-06-19] MEDS: LEVOTHYROXINE SODIUM 88 MCG TAB PO SCH ×2 (05:22)
[2017-06-19] MEDS: RESP: ALBUTEROL 2.5 MG/IPRATROPIUM 0.5 MG NEB (PRN) NEB ×3 (06:17→21:28)
[2017-06-19] MEDS: FLUTICASONE PROPIONATE 50 MCG/ACT 16 GM NASAL SPRAY EACH NARE SCH (08:50)
[2017-06-19] MEDS: DILTIAZEM-CD 120 MG CAP ER PO SCH (08:51)
[2017-06-19] MEDS: DOCUSATE SODIUM 100 MG CAP PO SCH (08:51)
[2017-06-19] MEDS: APIXABAN 2.5 MG TABLET PO SCH ×2 (08:52→20:07)
[2017-06-19] MEDS: LORATADINE 10 MG TAB PO SCH (08:52)
[2017-06-19] MEDS: SENNOSIDES 8.6 MG TAB PO SCH (08:52)
[2017-06-19] MEDS: CHOLECALCIFEROL (VIT D3) 1000 UNIT TAB PO SCH ×2 (08:52→20:07)
[2017-06-19] MEDS: FERROUS SULFATE 325 MG (65 MG ELEMENTAL IRON) TAB PO SCH (08:53)
[2017-06-19] MEDS: POTASSIUM CHLORIDE 10 MEQ CONTROLLED RELEASE TAB PO SCH ×2 (08:53→20:07)
[2017-06-19] MEDS: FUROSEMIDE 20 MG TAB PO SCH (08:53)
[2017-06-19] MEDS: predniSONE 5 MG TAB PO SCH (08:53)
[2017-06-19] MEDS: AMIODARONE 200 MG TAB PO SCH (08:53)
[2017-06-19] MEDS: SODIUM CHLORIDE 0.9% FLUSH 10 ML FLUSH IV FLUSH SCH ×2 (08:54→20:06)
[2017-06-19] MEDS: TIOTROPIUM BROMIDE 18 MCG INH INH SCH (09:02)
[2017-06-19] MEDS ORDERED: ONDANSETRON ODT 4 MG TAB SL PRN (11:00)
[2017-06-19] MEDS: VANCOMYCIN 1,000 MG/NS 250 ML IV SCH ×2 (14:28)
--- NOTE | 2017-06-19 14:51 | HHI.PR ---
Subjective Remarks Legs still hurt, slightly better Objective Vitals Vital Signs Date Time Temp Pulse Resp B/P (MAP) Pulse Ox O2 Delivery O2 Flow Rate FiO2 06/19/17 12:00 97.8 82 18 112/55 (74) 92 06/19/17 11:22 94 Nasal Cannula 2.00 06/19/17 08:00 97.0 77 18 128/59 (82) 92 06/19/17 00:00 97.3 81 20 120/56 (77) 95 06/18/17 20:10 94 Nasal Cannula 2.00 06/18/17 20:00 98.3 84 20 125/57 (79) 93 06/18/17 17:16 96.8 88 16 113/71 (85) 91 Result Diagram: 06/18/17 0556 06/19/17 0548 Objective Remarks Lying in bed, on O2 diminished breath sounds rrr +bs both lower extremites, erythema , blister slight edema, areas of ecchymosis A/P Problem List: (1) COPD (chronic obstructive pulmonary disease) ICD Codes: J44.9 - COPD (chronic obstructive pulmonary disease) Status: Chronic Plan: end stage, steroid and oxygen dependent , stable (2) Bilateral lower leg cellulitis ICD Codes: L03.116 - Cellulitis of left lower limb; L03.115 - Cellulitis of right lower limb Status: Acute Plan: seen by jenae BRISCOE added to [facility] (3) Hypothyroidism ICD Codes: E03.9 - Hypothyroidism Status: Chronic Plan: cont hypothyroidism as prescribed by primary (4) Hyperlipemia ICD Codes: E78.5 - Hyperlipemia Status: Chronic Plan: cont pravastatin (5) Atrial fibrillation ICD Codes: I48.91 - Unspecified atrial fibrillation Status: Chronic Plan: on amiodarone, eliquis since last fall Problem Qualifiers (1) COPD (chronic obstructive pulmonary disease): Mery Pastrana MD Jun 19, 2017 14:51
[2017-06-19] MEDS ORDERED: VANCOMYCIN 1,000 MG/NS 250 ML IV SCH ×2 (20:00)
[2017-06-19] MEDS: MONTELUKAST SODIUM 10 MG TAB PO SCH (20:06)
[2017-06-19] MEDS: PRAVASTATIN SOD 40 MG TAB PO SCH (20:07)
[2017-06-19] MEDS: FAMOTIDINE 20 MG TAB PO SCH (20:07)
[2017-06-19] MEDS: ALPRAZolam 0.25 MG TAB PO PRN (22:32)
[2017-06-20] VITALS (7 sets, daily range): BP systolic 104–138; BP diastolic 50–67; PULSE 79–97; RESP 14–20; TEMP 97.7–98.6; O2SAT 91–95
[2017-06-20] MEDS: AMPICILLIN-SULBACTAM INJ 1,500 MG in SODIUM CHLORIDE 0.9% INJ 100 ML IV SCH ×2 (05:45→14:28)
[2017-06-20] MEDS: LEVOTHYROXINE SODIUM 88 MCG TAB PO SCH (05:45)
[2017-06-20] MEDS: RESP: ALBUTEROL 2.5 MG/IPRATROPIUM 0.5 MG NEB (PRN) NEB ×4 (05:45→22:13)
[2017-06-20] MEDS: FLUTICASONE PROPIONATE 50 MCG/ACT 16 GM NASAL SPRAY EACH NARE SCH (10:44)
[2017-06-20] MEDS: TIOTROPIUM BROMIDE 18 MCG INH INH SCH (10:44)
[2017-06-20] MEDS: DILTIAZEM-CD 120 MG CAP ER PO SCH (10:45)
[2017-06-20] MEDS: CHOLECALCIFEROL (VIT D3) 1000 UNIT TAB PO SCH ×2 (10:45→20:39)
[2017-06-20] MEDS: AMIODARONE 200 MG TAB PO SCH (10:45)
[2017-06-20] MEDS: APIXABAN 2.5 MG TABLET PO SCH ×2 (10:46→20:40)
[2017-06-20] MEDS: DOCUSATE SODIUM 100 MG CAP PO SCH (10:47)
[2017-06-20] MEDS: SENNOSIDES 8.6 MG TAB PO SCH (10:47)
[2017-06-20] MEDS: POTASSIUM CHLORIDE 10 MEQ CONTROLLED RELEASE TAB PO SCH ×2 (10:48→20:39)
[2017-06-20] MEDS: LORATADINE 10 MG TAB PO SCH (10:48)
[2017-06-20] MEDS: FERROUS SULFATE 325 MG (65 MG ELEMENTAL IRON) TAB PO SCH (10:48)
[2017-06-20] MEDS: FUROSEMIDE 20 MG TAB PO SCH (10:48)
[2017-06-20] MEDS: predniSONE 5 MG TAB PO SCH (10:49)
--- NOTE | 2017-06-20 12:09 | HHI.PR ---
Subjective Remarks legs still painful, declines pain medication Objective Vitals Vital Signs Date Time Temp Pulse Resp B/P (MAP) Pulse Ox O2 Delivery O2 Flow Rate FiO2 06/20/17 08:00 97.7 79 14 120/58 (78) 94 06/20/17 07:20 94 Nasal Cannula 3.00 06/20/17 00:00 98.6 80 16 104/50 (68) 93 06/19/17 21:30 97 Nasal Cannula 3.00 06/19/17 20:00 98.5 83 16 127/62 (83) 93 06/19/17 16:00 97.6 92 20 134/61 (85) 90 06/20/17 06/20/17 06/21/17 15:00 23:00 07:00 Intake Total 120 ml Balance 120 ml Intake Oral 120 ml Result Diagram: 06/18/17 0556 06/19/17 0548 Objective Remarks sitting in chair on O2 diminished breath sounds, some crackles rrr +bs both lower extremites, erythema , blister slight edema, areas of ecchymosis, tender to touch A/P Problem List: (1) COPD (chronic obstructive pulmonary disease) ICD Codes: J44.9 - COPD (chronic obstructive pulmonary disease) Status: Chronic Plan: end stage, steroid and oxygen dependent , stable, she will use the nebulizer more frequently today (2) Bilateral lower leg cellulitis ICD Codes: L03.116 - Cellulitis of left lower limb; L03.115 - Cellulitis of right lower limb Status: Acute Plan: seen by ID, unasyn added to [facility] (3) Hypothyroidism ICD Codes: E03.9 - Hypothyroidism Status: Chronic Plan: cont hypothyroidism as prescribed by primary (4) Hyperlipemia ICD Codes: E78.5 - Hyperlipemia Status: Chronic Plan: cont pravastatin (5) Atrial fibrillation ICD Codes: I48.91 - Unspecified atrial fibrillation Status: Chronic Plan: on amiodarone, eliquis since last fall Problem Qualifiers (1) COPD (chronic obstructive pulmonary disease): Mery Pastrana MD Jun 20, 2017 12:09
[2017-06-20 14:05] LABS: AUTOMATED NEUTROPHIL # 7.6 TH/MM3 (1.8-7.7); BASOPHIL % 0.2 % (0.0-2.0); EOSINOPHIL # 0.1 TH/MM3 (0-0.4); EOSINOPHIL % 0.6 % (0.0-4.0); HEMATOCRIT 35.4 % (35.0-46.0); HEMOGLOBIN 10.9 GM/DL (11.6-15.3); LYMPH % 5.8 % (9.0-44.0); LYMPHOCYTE # 0.5 TH/MM3 (1.0-4.8); MEAN CELL VOLUME 92.5 FL (80.0-100.0); MEAN CORPUSCULAR HEMOGLOBIN 28.6 PG (27.0-34.0); MEAN CORPUSCULAR HGB CONC 30.9 % (32.0-36.0); MONO % 5.1 % (0.0-8.0); MONOCYTE # 0.4 TH/MM3 (0-0.9); NEUT % 88.3 % (16.0-70.0); PLATELET COUNT 231 TH/MM3 (150-450); RED BLOOD COUNT 3.82 MIL/MM3 (4.00-5.30); RED CELL DISTRIBUTION WIDTH 12.3 % (11.6-17.2); WHITE BLOOD COUNT 8.6 TH/MM3 (4.0-11.0)
[2017-06-20 14:16] LABS: CHLORIDE 92 MEQ/L (98-107); SODIUM (NA) 137 MEQ/L (136-145)
[2017-06-20 14:19] LABS: CALCIUM 8.9 MG/DL (8.5-10.1)
[2017-06-20 14:20] LABS: ALBUMIN 2.8 GM/DL (3.4-5.0); BICARBONATE 42.5 MEQ/L (21.0-32.0); BLOOD UREA NITROGEN 28 MG/DL (7-18); GLUCOSE,RANDOM 97 MG/DL (74-106)
[2017-06-20 14:23] LABS: ALT (GPT) 26 U/L (10-53); AST (GOT) 25 U/L (15-37); GLOMERULAR FILTRATION RATE 54 ML/MIN (>89)
[2017-06-20 14:24] LABS: TOTAL BILIRUBIN ADULT 0.4 MG/DL (0.2-1.0); TOTAL PROTEIN 6.3 GM/DL (6.4-8.2)
[2017-06-20 14:25] LABS: ALKALINE PHOSPHATASE 87 U/L (45-117)
[2017-06-20] MEDS: SODIUM CHLORIDE 0.9% FLUSH 10 ML FLUSH IV FLUSH SCH ×2 (14:28→20:40)
--- NOTE | 2017-06-20 14:48 | RADRPT ---
EXAM DATE/TIME: 06/20/2017 13:44 [facility] COMPARISON: No previous studies available for comparison. 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 ENCOUNTER: Initial ACUITY: 1 week PAIN SCORE: 10/10 LOCATION: Right foot FINDINGS: Three view examination of the right foot demonstrates no soft tissue swelling, dislocation, or fractu re. The tarsal bones appear intact. The interphalangeal and metatarsophalangeal joints are intact. The calcaneus is intact. Bony mineralization is normal. CONCLUSION: Negative for degenerative changes or neurotrophic joint. Harjinder Goff MD FACR on June 20, 2017 at 14:45 Board Certified Radiologist. This report was verified electronically.
--- NOTE | 2017-06-20 14:48 | RADRPT ---
EXAM DATE/TIME: 06/20/2017 13:44 [facility] COMPARISON: No previous studies available for comparison. 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 ENCOUNTER: Initial ACUITY: 1 week PAIN SCORE: 10/10 LOCATION: Left foot FINDINGS: Three view examination of the left foot demonstrates no soft tissue swelling, dislocation, or fractur e. The tarsal bones appear intact. The interphalangeal and metatarsophalangeal joints are intact. The calcaneus is intact. Bony mineralization is normal. CONCLUSION: I do not see bone destruction to suggest osteomyelitis. Harjinder Goff MD FACR on June 20, 2017 at 14:45 Board Certified Radiologist. This report was verified electronically.
[2017-06-20] MEDS: SIMETHICONE 125 MG CHEWABLE TAB PO SCH ×2 (15:27→20:39)
--- NOTE | 2017-06-20 18:16 | HHI.IDPN ---
Note Infectious Disease Note Patient notes still having severe pain in the legs. Also says she is a little short of breath. On O2 via nasal canula. Afebrile. Presented to the emergency department with problems of the skin. The patient has erythema of both lower extremities. She was initially seen in the emergency department on June 13 and evaluated for COPD. At that time, she was noted to have erythema of the left anterior distal tibia region which had a tiny wound. The patient notes that she scraped the left anterior tibia with her fingernail accidentally. She was discharged home for follow up with her primary physician. The patient noted that she was in the bathroom showering and she had some drainage at the right distal tibia where she developed a blister with deep purple coloration. She states that a little bit of pus came from that location and then she started feeling severe pain and called her friends and she was brought to the emergency department for evaluation. She was being treated with doxycycline outpatient. She has COPD and receives chronic antibiotic suppression with azithromycin three times a week. She was also recently started on Eliquis for atrial fibrillation. The Eliquis was started in February 2017. PAST MEDICAL HISTORY 1. Hyperlipidemia, 2. Hypothyroidism, 3. Gastroesophageal reflux disease, 4. Osteoporosis, 5. Anxiety disorder, 6. Severe COPD, 7. History of cataract surgery 8. History of right wrist fracture 9. History of cholecystectomy, 10. History of chest tube insertion for spontaneous pneumothorax. ALLERGIES SULFA CIPRO CEFUROXIME MEDICATIONS 1. Vancomycin. 2. Unasyn. SOCIAL HISTORY No tobacco. Occasional alcohol. No illicit drugs. OBJECTIVE: Vital Signs Date Time Temp Pulse Resp B/P (MAP) Pulse Ox O2 Delivery O2 Flow Rate FiO2 06/20/17 16:00 98.1 97 14 119/64 (82) 91 06/20/17 12:00 98.3 87 14 138/67 (90) 93 06/20/17 08:00 97.7 79 14 120/58 (78) 94 06/20/17 07:20 94 Nasal Cannula 3.00 06/20/17 00:00 98.6 80 16 104/50 (68) 93 06/19/17 21:30 97 Nasal Cannula 3.00 06/19/17 20:00 98.5 83 16 127/62 (83) 93 Laboratory Tests Test 06/20/17 14:00 White Blood Count 8.6 TH/MM3 Red Blood Count 3.82 MIL/MM3 Hemoglobin 10.9 GM/DL Hematocrit 35.4 % Mean Corpuscular Volume 92.5 FL Mean Corpuscular Hemoglobin 28.6 PG Mean Corpuscular Hemoglobin Concent 30.9 % Red Cell Distribution Width 12.3 % Platelet Count 231 TH/MM3 Mean Platelet Volume 6.0 FL Neutrophils (%) (Auto) 88.3 % Lymphocytes (%) (Auto) 5.8 % Monocytes (%) (Auto) 5.1 % Eosinophils (%) (Auto) 0.6 % Basophils (%) (Auto) 0.2 % Neutrophils # (Auto) 7.6 TH/MM3 Lymphocytes # (Auto) 0.5 TH/MM3 Monocytes # (Auto) 0.4 TH/MM3 Eosinophils # (Auto) 0.1 TH/MM3 Basophils # (Auto) 0.0 TH/MM3 CBC Comment DIFF FINAL Differential Comment Laboratory Tests Test 06/19/17 05:48 06/20/17 14:00 Creatinine 1.00 MG/DL 1.00 MG/DL Estimat Glomerular Filtration Rate 54 ML/MIN 54 ML/MIN Blood Urea Nitrogen 28 MG/DL Random Glucose 97 MG/DL Total Protein 6.3 GM/DL Albumin 2.8 GM/DL Calcium Level 8.9 MG/DL Alkaline Phosphatase 87 U/L Aspartate Amino Transf (AST/SGOT) 25 U/L Alanine Aminotransferase (ALT/SGPT) 26 U/L Total Bilirubin 0.4 MG/DL Sodium Level 137 MEQ/L Potassium Level 3.0 MEQ/L Chloride Level 92 MEQ/L Carbon Dioxide Level 42.5 MEQ/L Anion Gap 3 MEQ/L PHYSICAL EXAMINATION GENERAL: No acute distress. She is awake and alert. HEENT: Head atraumatic. Extraocular movements grossly intact. No icterus. No conjunctival erythema. Oropharynx moist mucosa. No visible lesions. No thrush. NECK: Supple. No adenopathy or swelling. LUNGS: Clear diminished breath sounds HEART: Irregular rate and rhythm. No murmurs or rubs or gallops. ABDOMEN: Bowel sounds present, soft, nontender. EXTREMITIES: The right leg has a large blisteriform lesion which is purpuric and looks like a hematoma at the inner aspect of the distal tibia. This is very tender. There is mild surrounding erythema. The left tibia erythema from the below the knee down to the ankle is only slightly less. It is very tender to touch. The left lower extremity has approximately 2+ edema. SKIN: No diffuse rash. NEUROLOGIC: No gross focal findings. PSYCHIATRIC: The patient is calm and cooperative. IMPRESSION 1. Cellulitis of the left and right lower extremities with the left greater than right. Very slow to improve. No fracture or osteo seen on plain film. 2. MULTIPLE ANTIBIOTICS ALLERGIES 3. Chronic kidney disease with possibly acute component as well. 4. Possible hematoma at the right distal tibia. RECOMMENDATIONS 1. Continue vancomycin 2. Change the Unasyn to Oxacillin. adjusted for renal function 3. Obtain a culture of the right distal tibia area of blister and swelling if there is drainage from that lesion. 4. Monitor the response to antibiotic treatment. 5. Elevate both legs. Dr Green to follow for ID beginning tomorrow. Lex Daley MD Jun 20, 2017 18:16
[2017-06-20] MEDS: MONTELUKAST SODIUM 10 MG TAB PO SCH (20:39)
[2017-06-20] MEDS: FAMOTIDINE 20 MG TAB PO SCH (20:40)
[2017-06-20] MEDS: PRAVASTATIN SOD 40 MG TAB PO SCH (20:40)
[2017-06-20] MEDS: SODIUM CHLORIDE 0.9% FLUSH 10 ML FLUSH IV FLUSH PRN (21:02)
[2017-06-20] MEDS: OXACILLIN IV SCH (21:02)
[2017-06-20] MEDS: SODIUM CHLORIDE 0.9% IV SCH (21:02)
[2017-06-20] MEDS: ALPRAZolam 0.25 MG TAB PO PRN (22:38)
[2017-06-21] VITALS (8 sets, daily range): BP systolic 100–129; BP diastolic 56–71; PULSE 71–94; RESP 15–20; TEMP 96.8–98; O2SAT 94–97
[2017-06-21] MEDS: VANCOMYCIN 1,000 MG/NS 250 ML IV SCH ×2 (00:25)
[2017-06-21] MEDS: SODIUM CHLORIDE 0.9% FLUSH 10 ML FLUSH IV FLUSH PRN (00:25)
[2017-06-21] MEDS: SODIUM CHLORIDE 0.9% IV SCH ×6 (01:51→22:12)
[2017-06-21] MEDS: OXACILLIN IV SCH ×6 (01:51→22:12)
[2017-06-21 05:56] LABS: CREATININE 1.1 MG/DL (0.50-1.00)
[2017-06-21] MEDS: LEVOTHYROXINE SODIUM 88 MCG TAB PO SCH (06:19)
[2017-06-21] MEDS: RESP: ALBUTEROL 2.5 MG/IPRATROPIUM 0.5 MG NEB (PRN) NEB ×4 (07:23→21:59)
[2017-06-21] MEDS: TIOTROPIUM BROMIDE 18 MCG INH INH SCH (08:59)
[2017-06-21] MEDS: FLUTICASONE PROPIONATE 50 MCG/ACT 16 GM NASAL SPRAY EACH NARE SCH (08:59)
[2017-06-21] MEDS: POTASSIUM CHLORIDE 10 MEQ CONTROLLED RELEASE TAB PO SCH ×2 (09:07→22:14)
[2017-06-21] MEDS: FERROUS SULFATE 325 MG (65 MG ELEMENTAL IRON) TAB PO SCH (09:07)
[2017-06-21] MEDS: DOCUSATE SODIUM 100 MG CAP PO SCH (09:07)
[2017-06-21] MEDS: SENNOSIDES 8.6 MG TAB PO SCH (09:07)
[2017-06-21] MEDS: SODIUM CHLORIDE 0.9% FLUSH 10 ML FLUSH IV FLUSH SCH ×2 (09:07→22:14)
[2017-06-21] MEDS: CHOLECALCIFEROL (VIT D3) 1000 UNIT TAB PO SCH ×2 (09:08→22:13)
[2017-06-21] MEDS: SIMETHICONE 125 MG CHEWABLE TAB PO SCH ×2 (09:08→22:13)
[2017-06-21] MEDS: APIXABAN 2.5 MG TABLET PO SCH ×2 (09:08→22:14)
[2017-06-21] MEDS: AMIODARONE 200 MG TAB PO SCH (09:09)
[2017-06-21] MEDS: LORATADINE 10 MG TAB PO SCH (09:09)
[2017-06-21] MEDS: DILTIAZEM-CD 120 MG CAP ER PO SCH (09:09)
[2017-06-21] MEDS: predniSONE 5 MG TAB PO SCH (09:09)
[2017-06-21] MEDS: FUROSEMIDE 20 MG TAB PO SCH (09:10)
--- NOTE | 2017-06-21 13:24 | HHI.PR ---
Subjective Remarks legs hurt more when they dangle, does not want breathing treatments scheduled , has been calling for them, Objective Vitals Vital Signs Date Time Temp Pulse Resp B/P (MAP) Pulse Ox O2 Delivery O2 Flow Rate FiO2 06/21/17 08:00 96.8 71 15 121/57 (78) 97 06/21/17 07:23 96 Nasal Cannula 3.00 06/21/17 00:00 97.2 83 20 125/58 (80) 97 06/20/17 20:00 98.6 83 20 116/56 (76) 95 06/20/17 19:30 95 Nasal Cannula 3.00 06/20/17 16:00 98.1 97 14 119/64 (82) 91 06/21/17 06/21/17 06/22/17 14:59 22:59 06:59 Intake Total 100 ml Balance 100 ml IV Total 100 ml # Voids 1 Result Diagram: 06/20/17 1400 06/21/17 0445 Objective Remarks lying in bed on O2 diminished breath sounds, some crackles rrr +bs both lower extremites, erythema , blister slight edema, areas of ecchymosis, tender to touch, minimal improvement from yesterday A/P Problem List: (1) COPD (chronic obstructive pulmonary disease) ICD Codes: J44.9 - COPD (chronic obstructive pulmonary disease) Status: Chronic Plan: end stage, steroid and oxygen dependent , stable, she will use the nebulizer more frequently today (2) Bilateral lower leg cellulitis ICD Codes: L03.116 - Cellulitis of left lower limb; L03.115 - Cellulitis of right lower limb Status: Acute Plan: seen by ID, unasyn changed to oxacillin on vanco (3) Hypothyroidism ICD Codes: E03.9 - Hypothyroidism Status: Chronic Plan: cont hypothyroidism as prescribed by primary (4) Hyperlipemia ICD Codes: E78.5 - Hyperlipemia Status: Chronic Plan: cont pravastatin (5) Atrial fibrillation ICD Codes: I48.91 - Unspecified atrial fibrillation Status: Chronic Plan: on amiodarone, eliquis since last fall Problem Qualifiers (1) COPD (chronic obstructive pulmonary disease): Mery Pastrana MD Jun 21, 2017 13:24
[2017-06-21] MEDS ORDERED: POTASSIUM CHLORIDE 20 MEQ CONTROLLED RELEASE TAB PO ONE (14:00)
[2017-06-21] MEDS: ALPRAZolam 0.25 MG TAB PO PRN ×2 (14:04→23:03)
--- NOTE | 2017-06-21 18:12 | HHI.IDPN ---
Subjective Subjective Remarks ID FU DR GREEN PT SITTING UP IN BED. C/O PAIN WITH STANDING + CHILLS RIGHT ANKLE OOZING (Chele,Araceli DOMINGUEZ) Remarks No fever Antibiotics Vancomycin, Oxacillin (Danielle Green MD) Allergies: Coded Allergies: Sulfa (Sulfonamide Antibiotics) (Verified Allergy, Severe, Hives, 06/17/17) cefuroxime (Verified Allergy, Severe, Hives, 06/17/17) ciprofloxacin (Verified Allergy, Mild, RASH, 06/17/17) Objective . Vital Signs Date Time Temp Pulse Resp B/P (MAP) Pulse Ox O2 Delivery O2 Flow Rate FiO2 06/21/17 14:50 100/71 (81) 06/21/17 12:00 98.0 83 17 129/58 (81) 95 06/21/17 08:00 96.8 71 15 121/57 (78) 97 06/21/17 07:23 96 Nasal Cannula 3.00 06/21/17 00:00 97.2 83 20 125/58 (80) 97 06/20/17 20:00 98.6 83 20 116/56 (76) 95 06/20/17 19:30 95 Nasal Cannula 3.00 06/21/17 06/21/17 06/22/17 15:00 23:00 07:00 Intake Total 100 ml Balance 100 ml IV Total 100 ml # Voids 1 . Laboratory Tests Test 06/20/17 14:00 White Blood Count 8.6 TH/MM3 Red Blood Count 3.82 MIL/MM3 Hemoglobin 10.9 GM/DL Hematocrit 35.4 % Mean Corpuscular Volume 92.5 FL Mean Corpuscular Hemoglobin 28.6 PG Mean Corpuscular Hemoglobin Concent 30.9 % Red Cell Distribution Width 12.3 % Platelet Count 231 TH/MM3 Mean Platelet Volume 6.0 FL Neutrophils (%) (Auto) 88.3 % Lymphocytes (%) (Auto) 5.8 % Monocytes (%) (Auto) 5.1 % Eosinophils (%) (Auto) 0.6 % Basophils (%) (Auto) 0.2 % Neutrophils # (Auto) 7.6 TH/MM3 Lymphocytes # (Auto) 0.5 TH/MM3 Monocytes # (Auto) 0.4 TH/MM3 Eosinophils # (Auto) 0.1 TH/MM3 Basophils # (Auto) 0.0 TH/MM3 CBC Comment DIFF FINAL Differential Comment Laboratory Tests Test 06/20/17 14:00 06/21/17 04:45 Blood Urea Nitrogen 28 MG/DL Creatinine 1.00 MG/DL 1.10 MG/DL Random Glucose 97 MG/DL Total Protein 6.3 GM/DL Albumin 2.8 GM/DL Calcium Level 8.9 MG/DL Alkaline Phosphatase 87 U/L Aspartate Amino Transf (AST/SGOT) 25 U/L Alanine Aminotransferase (ALT/SGPT) 26 U/L Total Bilirubin 0.4 MG/DL Sodium Level 137 MEQ/L Potassium Level 3.0 MEQ/L Chloride Level 92 MEQ/L Carbon Dioxide Level 42.5 MEQ/L Anion Gap 3 MEQ/L Estimat Glomerular Filtration Rate 54 ML/MIN 48 ML/MIN Microbiology Date/Time Source Procedure Growth Status 06/21/17 15:00 Wound Skin Gram Stain Pending Received 06/21/17 15:00 Wound Skin Wound Culture Pending Received Physical Exam AWAKE/ OX 3 PERRL NS CHEST: CTA CARDIAC : RRR ABD SOFT ACTIVE EXT. BLE EDEMA TENDER , REDNESS SEEMS BETTER, NOTED LINEAR NODULES TENDER PT DENIES ANY EXPOSURE TO SOILS OR PLANTS. [place] (Araceli Elaine) Assessment & Plan Diagnosis: (1) Fracture of right distal radius ICD Codes: S52.501A - Fracture of right distal radius Status: Acute (2) HTN (hypertension) ICD Codes: I10 - HTN (hypertension) Status: Acute (3) Bilateral lower leg cellulitis ICD Codes: L03.116 - Cellulitis of left lower limb; L03.115 - Cellulitis of right lower limb Status: Acute Plan: CONTINUE VANCOMYCYIN AND OXACILLIN WILL MONITOR CULTURES AND ADJ ABX ACCORDINGLY (Araceli Elaine) Diagnosis: (1) Fracture of right distal radius ICD Codes: S52.501A - Fracture of right distal radius Status: Acute (2) HTN (hypertension) ICD Codes: I10 - HTN (hypertension) Status: Acute (3) Bilateral lower leg cellulitis ICD Codes: L03.116 - Cellulitis of left lower limb; L03.115 - Cellulitis of right lower limb Status: Acute Plan: CONTINUE VANCOMYCIN AND OXACILLIN WILL MONITOR CULTURES AND ADJ ABX ACCORDINGLY Follow wound culture Monitor renal function closely (Danielle Green MD) Araceli Elaine Jun 21, 2017 18:12 Danielle Green MD Jun 21, 2017 19:02
[2017-06-21] MEDS: FAMOTIDINE 20 MG TAB PO SCH (22:13)
[2017-06-21] MEDS: PRAVASTATIN SOD 40 MG TAB PO SCH (22:13)
[2017-06-21] MEDS: MONTELUKAST SODIUM 10 MG TAB PO SCH (22:14)
[2017-06-22] VITALS (7 sets, daily range): BP systolic 108–129; BP diastolic 56–60; PULSE 76–87; RESP 16–20; TEMP 96.6–98.4; O2SAT 93–98
[2017-06-22] MEDS: SODIUM CHLORIDE 0.9% IV SCH ×6 (01:47→21:31)
[2017-06-22] MEDS: OXACILLIN IV SCH ×6 (01:47→21:31)
[2017-06-22] MEDS: LEVOTHYROXINE SODIUM 88 MCG TAB PO SCH ×2 (04:50→04:55)
[2017-06-22] MEDS: RESP: ALBUTEROL 2.5 MG/IPRATROPIUM 0.5 MG NEB (PRN) NEB ×3 (08:00→21:32)
--- NOTE | 2017-06-22 08:43 | HHI.IDPN ---
Subjective Subjective Remarks Legs feel better when in bed. Painful when she stands No fever Antibiotics Vancomycin, Oxacillin Lines Peripheral IV line Allergies: Coded Allergies: Sulfa (Sulfonamide Antibiotics) (Verified Allergy, Severe, Hives, 06/17/17) cefuroxime (Verified Allergy, Severe, Hives, 06/17/17) ciprofloxacin (Verified Allergy, Mild, RASH, 06/17/17) Objective . Vital Signs Date Time Temp Pulse Resp B/P (MAP) Pulse Ox O2 Delivery O2 Flow Rate FiO2 06/22/17 08:01 93 Nasal Cannula 3.00 06/22/17 00:00 97.6 78 16 120/59 (79) 96 06/21/17 20:00 97.9 78 16 121/57 (78) 97 06/21/17 19:30 95 Nasal Cannula 3.00 06/21/17 16:00 97.5 94 18 117/56 (76) 94 06/21/17 14:50 100/71 (81) 06/21/17 12:00 98.0 83 17 129/58 (81) 95 . Laboratory Tests Test 06/20/17 14:00 White Blood Count 8.6 TH/MM3 Red Blood Count 3.82 MIL/MM3 Hemoglobin 10.9 GM/DL Hematocrit 35.4 % Mean Corpuscular Volume 92.5 FL Mean Corpuscular Hemoglobin 28.6 PG Mean Corpuscular Hemoglobin Concent 30.9 % Red Cell Distribution Width 12.3 % Platelet Count 231 TH/MM3 Mean Platelet Volume 6.0 FL Neutrophils (%) (Auto) 88.3 % Lymphocytes (%) (Auto) 5.8 % Monocytes (%) (Auto) 5.1 % Eosinophils (%) (Auto) 0.6 % Basophils (%) (Auto) 0.2 % Neutrophils # (Auto) 7.6 TH/MM3 Lymphocytes # (Auto) 0.5 TH/MM3 Monocytes # (Auto) 0.4 TH/MM3 Eosinophils # (Auto) 0.1 TH/MM3 Basophils # (Auto) 0.0 TH/MM3 CBC Comment DIFF FINAL Differential Comment Laboratory Tests Test 06/20/17 14:00 06/21/17 04:45 Blood Urea Nitrogen 28 MG/DL Creatinine 1.00 MG/DL 1.10 MG/DL Random Glucose 97 MG/DL Total Protein 6.3 GM/DL Albumin 2.8 GM/DL Calcium Level 8.9 MG/DL Alkaline Phosphatase 87 U/L Aspartate Amino Transf (AST/SGOT) 25 U/L Alanine Aminotransferase (ALT/SGPT) 26 U/L Total Bilirubin 0.4 MG/DL Sodium Level 137 MEQ/L Potassium Level 3.0 MEQ/L Chloride Level 92 MEQ/L Carbon Dioxide Level 42.5 MEQ/L Anion Gap 3 MEQ/L Estimat Glomerular Filtration Rate 54 ML/MIN 48 ML/MIN Microbiology Date/Time Source Procedure Growth Status 06/21/17 15:00 Wound Skin Gram Stain Pending Received 06/21/17 15:00 Wound Skin Wound Culture Pending Received Physical Exam AWAKE/ OX 3 PERRL NS CHEST: CTA CARDIAC : RRR ABD SOFT ACTIVE Left leg redness and swelling better Rt leg with a small fluctuant swelling ? hematoma- Surrounding erythema better Assessment & Plan Diagnosis: (1) Fracture of right distal radius ICD Codes: S52.501A - Fracture of right distal radius Status: Acute (2) HTN (hypertension) ICD Codes: I10 - HTN (hypertension) Status: Acute (3) Bilateral lower leg cellulitis ICD Codes: L03.116 - Cellulitis of left lower limb; L03.115 - Cellulitis of right lower limb Status: Acute Plan: CONTINUE VANCOMYCIN AND OXACILLIN- some slow improvement Follow wound culture Monitor renal function closely Danielle Green MD Jun 22, 2017 08:43
[2017-06-22] MEDS: SIMETHICONE 125 MG CHEWABLE TAB PO SCH ×2 (10:32→21:29)
[2017-06-22] MEDS: FERROUS SULFATE 325 MG (65 MG ELEMENTAL IRON) TAB PO SCH (10:32)
[2017-06-22] MEDS: CHOLECALCIFEROL (VIT D3) 1000 UNIT TAB PO SCH ×2 (10:32→21:29)
[2017-06-22] MEDS: predniSONE 5 MG TAB PO SCH (10:32)
[2017-06-22] MEDS: FLUTICASONE PROPIONATE 50 MCG/ACT 16 GM NASAL SPRAY EACH NARE SCH (10:32)
[2017-06-22] MEDS: LORATADINE 10 MG TAB PO SCH (10:32)
[2017-06-22] MEDS: TIOTROPIUM BROMIDE 18 MCG INH INH SCH (10:32)
[2017-06-22] MEDS: FUROSEMIDE 20 MG TAB PO SCH (10:33)
[2017-06-22] MEDS: APIXABAN 2.5 MG TABLET PO SCH ×2 (10:33→21:29)
[2017-06-22] MEDS: POTASSIUM CHLORIDE 10 MEQ CONTROLLED RELEASE TAB PO SCH ×2 (10:33→21:30)
[2017-06-22] MEDS: SENNOSIDES 8.6 MG TAB PO SCH (10:33)
[2017-06-22] MEDS: DOCUSATE SODIUM 100 MG CAP PO SCH (10:33)
[2017-06-22] MEDS: SODIUM CHLORIDE 0.9% FLUSH 10 ML FLUSH IV FLUSH SCH ×2 (10:34→21:31)
[2017-06-22] MEDS: DILTIAZEM-CD 120 MG CAP ER PO SCH (10:34)
[2017-06-22] MEDS: AMIODARONE 200 MG TAB PO SCH (10:34)
[2017-06-22 12:35] LABS: BICARBONATE 40.4 MEQ/L (21.0-32.0); CALCIUM 8.2 MG/DL (8.5-10.1)
[2017-06-22 12:39] LABS: CREATININE 1.1 MG/DL (0.50-1.00)
[2017-06-22] MEDS ORDERED: VANCOMYCIN TROUGH ONE (12:45)
[2017-06-22] MEDS: VANCOMYCIN 1,000 MG/NS 250 ML IV SCH ×2 (14:00)
[2017-06-22 17:16] LABS: VANCOMYCIN TROUGH 9.7 MCG/ML (5.0-10.0)
[2017-06-22] MEDS: PRAVASTATIN SOD 40 MG TAB PO SCH (21:29)
[2017-06-22] MEDS: MONTELUKAST SODIUM 10 MG TAB PO SCH (21:29)
[2017-06-22] MEDS: FAMOTIDINE 20 MG TAB PO SCH (21:30)
--- NOTE | 2017-06-22 21:34 | HHI.PR ---
Subjective Remarks still with some discomfort Objective Vitals Vital Signs Date Time Temp Pulse Resp B/P (MAP) Pulse Ox O2 Delivery O2 Flow Rate FiO2 06/22/17 20:00 98.4 87 17 108/56 (73) 97 06/22/17 15:00 97.5 81 20 119/56 (77) 95 06/22/17 11:30 97.5 76 20 110/56 (74) 98 06/22/17 08:01 93 Nasal Cannula 3.00 06/22/17 07:30 96.6 83 20 129/60 (83) 95 06/22/17 00:00 97.6 78 16 120/59 (79) 96 06/22/17 06/22/17 06/23/17 15:00 23:00 07:00 Intake Total 450 ml 1285 ml Balance 450 ml 1285 ml Intake Oral 1085 ml IV Total 450 ml 200 ml # Voids 6 # Bowel Movements 3 Result Diagram: 06/20/17 1400 06/22/17 1220 Objective Remarks lying in bed on O2 diminished breath sounds rrr +bs both lower extremites, erythema , blister slight edema, areas of ecchymosis, tender to touch, slow improvement from yesterday A/P Problem List: (1) COPD (chronic obstructive pulmonary disease) ICD Codes: J44.9 - COPD (chronic obstructive pulmonary disease) Status: Chronic Plan: end stage, steroid and oxygen dependent , stable, using nebulizer (2) Bilateral lower leg cellulitis ICD Codes: L03.116 - Cellulitis of left lower limb; L03.115 - Cellulitis of right lower limb Status: Acute Plan: seen by ID, unasyn changed to oxacillin on vanco, slow improvement, culture unrevealing (3) Hypothyroidism ICD Codes: E03.9 - Hypothyroidism Status: Chronic Plan: cont hypothyroidism as prescribed by primary (4) Hyperlipemia ICD Codes: E78.5 - Hyperlipemia Status: Chronic Plan: cont pravastatin (5) Atrial fibrillation ICD Codes: I48.91 - Unspecified atrial fibrillation Status: Chronic Plan: on amiodarone, eliquis since last fall Problem Qualifiers (1) COPD (chronic obstructive pulmonary disease): Mery Pastrana MD Jun 22, 2017 21:34
[2017-06-22] MEDS: ALPRAZolam 0.25 MG TAB PO PRN (22:51)
[2017-06-23] VITALS (8 sets, daily range): BP systolic 106–129; BP diastolic 56–70; PULSE 73–95; RESP 16–20; TEMP 97.4–98.3; O2SAT 91–100
[2017-06-23] MEDS: OXACILLIN IV SCH ×6 (01:26→20:16)
[2017-06-23] MEDS: SODIUM CHLORIDE 0.9% IV SCH ×6 (01:26→20:16)
[2017-06-23] MEDS: LEVOTHYROXINE SODIUM 88 MCG TAB PO SCH (05:11)
[2017-06-23] MEDS: RESP: ALBUTEROL 2.5 MG/IPRATROPIUM 0.5 MG NEB (PRN) NEB ×3 (08:54→21:30)
[2017-06-23] MEDS: AMIODARONE 200 MG TAB PO SCH (09:00)
[2017-06-23 09:07] LABS: BICARBONATE 38.4 MEQ/L (21.0-32.0); CALCIUM 8.2 MG/DL (8.5-10.1); CREATININE 1.28 MG/DL (0.50-1.00)
[2017-06-23] MEDS: TIOTROPIUM BROMIDE 18 MCG INH INH SCH (09:12)
[2017-06-23] MEDS: FLUTICASONE PROPIONATE 50 MCG/ACT 16 GM NASAL SPRAY EACH NARE SCH (09:13)
[2017-06-23] MEDS: SODIUM CHLORIDE 0.9% FLUSH 10 ML FLUSH IV FLUSH SCH ×2 (09:13→20:08)
[2017-06-23] MEDS: DOCUSATE SODIUM 100 MG CAP PO SCH (09:14)
[2017-06-23] MEDS: CHOLECALCIFEROL (VIT D3) 1000 UNIT TAB PO SCH ×2 (09:14→20:07)
[2017-06-23] MEDS: FERROUS SULFATE 325 MG (65 MG ELEMENTAL IRON) TAB PO SCH (09:14)
[2017-06-23] MEDS: APIXABAN 2.5 MG TABLET PO SCH ×2 (09:14→20:06)
[2017-06-23] MEDS: SIMETHICONE 125 MG CHEWABLE TAB PO SCH ×2 (09:14→20:06)
[2017-06-23] MEDS: FUROSEMIDE 20 MG TAB PO SCH (09:14)
[2017-06-23] MEDS: POTASSIUM CHLORIDE 10 MEQ CONTROLLED RELEASE TAB PO SCH ×2 (09:15→20:07)
[2017-06-23] MEDS: predniSONE 5 MG TAB PO SCH (09:15)
[2017-06-23] MEDS: SENNOSIDES 8.6 MG TAB PO SCH (09:15)
[2017-06-23] MEDS: LORATADINE 10 MG TAB PO SCH (09:15)
[2017-06-23] MEDS: DILTIAZEM-CD 120 MG CAP ER PO SCH (09:15)
[2017-06-23] MEDS ORDERED: POTASSIUM CHLORIDE 20 MEQ CONTROLLED RELEASE TAB PO ONE (16:45)
--- NOTE | 2017-06-23 18:15 | HHI.PR ---
Subjective Remarks still some discomfort in her legs Objective Vitals Vital Signs Date Time Temp Pulse Resp B/P (MAP) Pulse Ox O2 Delivery O2 Flow Rate FiO2 06/23/17 15:50 97.4 95 20 122/58 (79) 91 06/23/17 11:50 97.7 82 20 112/56 (74) 100 06/23/17 08:56 97 Nasal Cannula 3.00 06/23/17 07:50 98.1 73 20 118/56 (76) 06/23/17 04:52 98 06/23/17 00:00 98.2 85 16 106/70 (82) 98 06/22/17 21:32 96 Nasal Cannula 3.00 06/22/17 20:00 98.4 87 17 108/56 (73) 97 06/23/17 06/23/17 06/24/17 15:00 23:00 07:00 Intake Total 100 ml Balance 100 ml IV Total 100 ml Result Diagram: 06/20/17 1400 06/23/17 0455 Objective Remarks sitting at bedside on O2 diminished breath sounds rrr +bs both lower extremites, erythema , blister slight edema, areas of ecchymosis, tender to touch, definate improvement from yesterday A/P Problem List: (1) COPD (chronic obstructive pulmonary disease) ICD Codes: J44.9 - COPD (chronic obstructive pulmonary disease) Status: Chronic Plan: end stage, steroid and oxygen dependent , stable, using nebulizer (2) Bilateral lower leg cellulitis ICD Codes: L03.116 - Cellulitis of left lower limb; L03.115 - Cellulitis of right lower limb Status: Acute Plan: seen by ID, unasyn changed to oxacillin on vanco, showing improvement, culture unrevealing (3) Hypothyroidism ICD Codes: E03.9 - Hypothyroidism Status: Chronic Plan: cont hypothyroidism as prescribed by primary (4) Hyperlipemia ICD Codes: E78.5 - Hyperlipemia Status: Chronic Plan: cont pravastatin (5) Atrial fibrillation ICD Codes: I48.91 - Unspecified atrial fibrillation Status: Chronic Plan: on amiodarone, eliquis since last fall Discharge Planning will need rehab at discharge Problem Qualifiers (1) COPD (chronic obstructive pulmonary disease): Mery Pastrana MD Jun 23, 2017 18:15
--- NOTE | 2017-06-23 18:30 | HHI.IDPN ---
Subjective Subjective Remarks Legs feel better when in bed. Less Painful today No fever Antibiotics Vancomycin, Oxacillin Lines Peripheral IV line Allergies: Coded Allergies: Sulfa (Sulfonamide Antibiotics) (Verified Allergy, Severe, Hives, 06/17/17) cefuroxime (Verified Allergy, Severe, Hives, 06/17/17) ciprofloxacin (Verified Allergy, Mild, RASH, 06/17/17) Objective . Vital Signs Date Time Temp Pulse Resp B/P (MAP) Pulse Ox O2 Delivery O2 Flow Rate FiO2 06/23/17 15:50 97.4 95 20 122/58 (79) 91 06/23/17 11:50 97.7 82 20 112/56 (74) 100 06/23/17 08:56 97 Nasal Cannula 3.00 06/23/17 07:50 98.1 73 20 118/56 (76) 06/23/17 04:52 98 06/23/17 00:00 98.2 85 16 106/70 (82) 98 06/22/17 21:32 96 Nasal Cannula 3.00 06/22/17 20:00 98.4 87 17 108/56 (73) 97 06/23/17 06/23/17 06/24/17 15:00 23:00 07:00 Intake Total 100 ml Balance 100 ml IV Total 100 ml . Laboratory Tests Test 06/22/17 12:20 06/23/17 04:55 Blood Urea Nitrogen 20 MG/DL 23 MG/DL Creatinine 1.10 MG/DL 1.28 MG/DL Random Glucose 75 MG/DL 87 MG/DL Calcium Level 8.2 MG/DL 8.2 MG/DL Sodium Level 140 MEQ/L 139 MEQ/L Potassium Level 3.4 MEQ/L 3.2 MEQ/L Chloride Level 95 MEQ/L 95 MEQ/L Carbon Dioxide Level 40.4 MEQ/L 38.4 MEQ/L Anion Gap 5 MEQ/L 6 MEQ/L Estimat Glomerular Filtration Rate 48 ML/MIN 41 ML/MIN Microbiology Date/Time Source Procedure Growth Status 06/21/17 15:00 Wound Skin Gram Stain - Final Resulted 06/21/17 15:00 Wound Skin Wound Culture - Preliminary NO GROWTH IN 48 HOURS. Resulted Physical Exam AWAKE/ OX 3 PERRL NS CHEST: CTA CARDIAC : RRR ABD SOFT ACTIVE Left leg redness and swelling better Rt leg with a small fluctuant swelling ? hematoma- Surrounding erythema / better today Assessment & Plan Diagnosis: (1) Fracture of right distal radius ICD Codes: S52.501A - Fracture of right distal radius Status: Acute (2) HTN (hypertension) ICD Codes: I10 - HTN (hypertension) Status: Acute (3) Bilateral lower leg cellulitis ICD Codes: L03.116 - Cellulitis of left lower limb; L03.115 - Cellulitis of right lower limb Status: Acute Plan: CONTINUE VANCOMYCYIN AND OXACILLIN WILL MONITOR CULTURES AND ADJ ABX ACCORDINGLY SHE SHOULD BE OK TO DC ON DOXYCYCLINE ON DISCHARGE FOR ANOTHER WEEK SEEN EXAM WITH Araceli Fuentes Jun 23, 2017 18:30
--- NOTE | 2017-06-23 18:34 | HHI.IDPN ---
Subjective Subjective Remarks Sitting up in chair. No fevers Some pain in legs though better. Antibiotics Vancomycin, Oxacillin Lines Peripheral IV line Allergies: Coded Allergies: Sulfa (Sulfonamide Antibiotics) (Verified Allergy, Severe, Hives, 06/17/17) cefuroxime (Verified Allergy, Severe, Hives, 06/17/17) ciprofloxacin (Verified Allergy, Mild, RASH, 06/17/17) Objective . Vital Signs Date Time Temp Pulse Resp B/P (MAP) Pulse Ox O2 Delivery O2 Flow Rate FiO2 06/23/17 15:50 97.4 95 20 122/58 (79) 91 06/23/17 11:50 97.7 82 20 112/56 (74) 100 06/23/17 08:56 97 Nasal Cannula 3.00 06/23/17 07:50 98.1 73 20 118/56 (76) 06/23/17 04:52 98 06/23/17 00:00 98.2 85 16 106/70 (82) 98 06/22/17 21:32 96 Nasal Cannula 3.00 06/22/17 20:00 98.4 87 17 108/56 (73) 97 06/23/17 06/23/17 06/24/17 15:00 23:00 07:00 Intake Total 100 ml Balance 100 ml IV Total 100 ml . Laboratory Tests Test 06/22/17 12:20 06/23/17 04:55 Blood Urea Nitrogen 20 MG/DL 23 MG/DL Creatinine 1.10 MG/DL 1.28 MG/DL Random Glucose 75 MG/DL 87 MG/DL Calcium Level 8.2 MG/DL 8.2 MG/DL Sodium Level 140 MEQ/L 139 MEQ/L Potassium Level 3.4 MEQ/L 3.2 MEQ/L Chloride Level 95 MEQ/L 95 MEQ/L Carbon Dioxide Level 40.4 MEQ/L 38.4 MEQ/L Anion Gap 5 MEQ/L 6 MEQ/L Estimat Glomerular Filtration Rate 48 ML/MIN 41 ML/MIN Microbiology Date/Time Source Procedure Growth Status 06/21/17 15:00 Wound Skin Gram Stain - Final Resulted 06/21/17 15:00 Wound Skin Wound Culture - Preliminary NO GROWTH IN 48 HOURS. Resulted Physical Exam AWAKE/ OX 3 PERRL NS CHEST: CTA CARDIAC : RRR ABD SOFT ACTIVE Left leg redness and swelling better Rt leg with a small fluctuant swelling ? hematoma- Surrounding erythema / better today - Patient advised she has a hematoma on rt leg and that it would take time to resolve but at this time no drainage of that area Assessment & Plan Diagnosis: (1) Fracture of right distal radius ICD Codes: S52.501A - Fracture of right distal radius Status: Acute (2) HTN (hypertension) ICD Codes: I10 - HTN (hypertension) Status: Acute (3) Bilateral lower leg cellulitis ICD Codes: L03.116 - Cellulitis of left lower limb; L03.115 - Cellulitis of right lower limb Status: Acute Plan: CONTINUE VANCOMYCIN AND OXACILLIN- some improvement Check CRP If continues to improve- can be changed to PO Doxycycline on 06/24 Danielle Green MD Jun 23, 2017 18:34
[2017-06-23] MEDS ORDERED: PHARMACY ORDERED LAB ONE (19:45)
[2017-06-23] MEDS: MONTELUKAST SODIUM 10 MG TAB PO SCH (20:06)
[2017-06-23] MEDS: PRAVASTATIN SOD 40 MG TAB PO SCH (20:07)
[2017-06-23] MEDS: FAMOTIDINE 20 MG TAB PO SCH (20:07)
[2017-06-23] MEDS: ALPRAZolam 0.25 MG TAB PO PRN (23:12)
[2017-06-24] VITALS: BP 131/72; PULSE 85; RESP 16; TEMP 97.9; O2SAT 99
[2017-06-24] MEDS: OXACILLIN IV SCH ×3 (01:22→09:02)
[2017-06-24] MEDS: SODIUM CHLORIDE 0.9% IV SCH ×3 (01:22→09:02)
[2017-06-24] MEDS: VANCOMYCIN 1,000 MG/NS 250 ML IV SCH ×2 (02:04)
[2017-06-24 04:00] VITALS: O2SAT 99
[2017-06-24] MEDS: LEVOTHYROXINE SODIUM 88 MCG TAB PO SCH (05:04)
[2017-06-24 07:19] LABS: BICARBONATE 40.1 MEQ/L (21.0-32.0); CALCIUM 8.1 MG/DL (8.5-10.1); MAGNESIUM 1.9 MG/DL (1.5-2.5)
[2017-06-24] MEDS: RESP: ALBUTEROL 2.5 MG/IPRATROPIUM 0.5 MG NEB (PRN) NEB (07:56)
[2017-06-24 07:57] VITALS: O2SAT 95
[2017-06-24 09:00] VITALS: BP 109/64; PULSE 108; RESP 20; O2SAT 94
[2017-06-24] MEDS: CHOLECALCIFEROL (VIT D3) 1000 UNIT TAB PO SCH (09:00)
[2017-06-24] MEDS: FLUTICASONE PROPIONATE 50 MCG/ACT 16 GM NASAL SPRAY EACH NARE SCH (09:02)
[2017-06-24] MEDS: TIOTROPIUM BROMIDE 18 MCG INH INH SCH (09:02)
[2017-06-24] MEDS: DILTIAZEM-CD 120 MG CAP ER PO SCH (09:03)
[2017-06-24] MEDS: APIXABAN 2.5 MG TABLET PO SCH (09:03)
[2017-06-24] MEDS: DOCUSATE SODIUM 100 MG CAP PO SCH (09:03)
[2017-06-24] MEDS: SODIUM CHLORIDE 0.9% FLUSH 10 ML FLUSH IV FLUSH SCH (09:03)
[2017-06-24] MEDS: FUROSEMIDE 20 MG TAB PO SCH (09:03)
[2017-06-24] MEDS: SENNOSIDES 8.6 MG TAB PO SCH (09:03)
[2017-06-24] MEDS: SIMETHICONE 125 MG CHEWABLE TAB PO SCH (09:04)
[2017-06-24] MEDS: AMIODARONE 200 MG TAB PO SCH (09:04)
[2017-06-24] MEDS: POTASSIUM CHLORIDE 10 MEQ CONTROLLED RELEASE TAB PO SCH (09:04)
[2017-06-24] MEDS: predniSONE 5 MG TAB PO SCH (09:04)
[2017-06-24] MEDS: LORATADINE 10 MG TAB PO SCH (09:04)
[2017-06-24] MEDS: FERROUS SULFATE 325 MG (65 MG ELEMENTAL IRON) TAB PO SCH (09:04)
--- NOTE | 2017-06-24 10:55 | HHI.IDPN ---
Subjective Subjective Remarks Sitting up in Bed. Occasional stinging in both legs No fevers Some pain in legs though better. Antibiotics Vancomycin, Oxacillin Lines Peripheral IV line Allergies: Coded Allergies: Sulfa (Sulfonamide Antibiotics) (Verified Allergy, Severe, Hives, 06/17/17) cefuroxime (Verified Allergy, Severe, Hives, 06/17/17) ciprofloxacin (Verified Allergy, Mild, RASH, 06/17/17) Objective . Vital Signs Date Time Temp Pulse Resp B/P (MAP) Pulse Ox O2 Delivery O2 Flow Rate FiO2 06/24/17 09:00 108 20 109/64 (79) 94 06/24/17 07:57 95 Nasal Cannula 3.00 06/24/17 04:00 99 06/24/17 00:00 97.9 85 16 131/72 (91) 99 06/23/17 21:30 96 Nasal Cannula 3.00 06/23/17 20:00 98.3 89 17 129/68 (88) 98 06/23/17 15:50 97.4 95 20 122/58 (79) 91 06/23/17 11:50 97.7 82 20 112/56 (74) 100 . Laboratory Tests Test 06/22/17 12:20 06/23/17 04:55 06/24/17 05:25 Blood Urea Nitrogen 20 MG/DL 23 MG/DL 21 MG/DL Creatinine 1.10 MG/DL 1.28 MG/DL 1.00 MG/DL Random Glucose 75 MG/DL 87 MG/DL 82 MG/DL Calcium Level 8.2 MG/DL 8.2 MG/DL 8.1 MG/DL Sodium Level 140 MEQ/L 139 MEQ/L 141 MEQ/L Potassium Level 3.4 MEQ/L 3.2 MEQ/L 4.2 MEQ/L Chloride Level 95 MEQ/L 95 MEQ/L 99 MEQ/L Carbon Dioxide Level 40.4 MEQ/L 38.4 MEQ/L 40.1 MEQ/L Anion Gap 5 MEQ/L 6 MEQ/L 2 MEQ/L Estimat Glomerular Filtration Rate 48 ML/MIN 41 ML/MIN 54 ML/MIN Magnesium Level 1.9 MG/DL Microbiology Date/Time Source Procedure Growth Status 06/21/17 15:00 Wound Skin Gram Stain - Final Complete 06/21/17 15:00 Wound Skin Wound Culture - Final NO GROWTH IN 72 HRS.--AEROBICALLY OR ... Complete Physical Exam AWAKE/ OX 3 PERRL NS CHEST: CTA CARDIAC : RRR ABD SOFT ACTIVE Left leg redness and swelling better Rt leg with a small fluctuant swelling ? hematoma- Surrounding erythema / better today - Patient advised she has a hematoma on rt leg and that it would take time to resolve but at this time no drainage of that area Assessment & Plan Diagnosis: (1) Fracture of right distal radius ICD Codes: S52.501A - Fracture of right distal radius Status: Acute (2) HTN (hypertension) ICD Codes: I10 - HTN (hypertension) Status: Acute (3) Bilateral lower leg cellulitis ICD Codes: L03.116 - Cellulitis of left lower limb; L03.115 - Cellulitis of right lower limb Status: Acute Plan: STOP VANCOMYCIN AND OXACILLIN- some improvement Will put patient on PO Doxycycline.- continue for 10 days with close followup Danielle Green MD Jun 24, 2017 10:55
[2017-06-24] MEDS ORDERED: DOXYCYCLINE HYCLATE 100 MG TAB PO SCH (11:00)
[2017-06-24 13:00] VITALS: BP 117/61; PULSE 84; RESP 20; TEMP 97.8; O2SAT 96
--- NOTE | 2017-06-24 14:37 | HHI.PR ---
Subjective Remarks endurance slightly improved with PT, Objective Vitals Vital Signs Date Time Temp Pulse Resp B/P (MAP) Pulse Ox O2 Delivery O2 Flow Rate FiO2 06/24/17 09:00 108 20 109/64 (79) 94 06/24/17 07:57 95 Nasal Cannula 3.00 06/24/17 04:00 99 06/24/17 00:00 97.9 85 16 131/72 (91) 99 06/23/17 21:30 96 Nasal Cannula 3.00 06/23/17 20:00 98.3 89 17 129/68 (88) 98 06/23/17 15:50 97.4 95 20 122/58 (79) 91 Result Diagram: 06/20/17 1400 06/24/17 0525 Objective Remarks in bed on O2 diminished breath sounds rrr +bs both lower extremities, erythema much decreased , blisters with some blood, areas of ecchymosis, ,lower and upper extremities definite improvement from yesterday, edema left greater then rt, ecch buttocks slightly pink some barrier cream, no skin breakdown A/P Problem List: (1) Bilateral lower leg cellulitis ICD Codes: L03.116 - Cellulitis of left lower limb; L03.115 - Cellulitis of right lower limb Status: Acute Plan: seen by ID, unasyn changed to oxacillin on vanco showing , culture unrevealing, has had slow response to treatment but has improved switched to doxycycline by ID (2) COPD (chronic obstructive pulmonary disease) ICD Codes: J44.9 - COPD (chronic obstructive pulmonary disease) Status: Chronic Plan: end stage, steroid and oxygen dependent , stable, using nebulizer, have been letting her use it prn but will schedule for rehab (3) Hypothyroidism ICD Codes: E03.9 - Hypothyroidism Status: Chronic Plan: cont hypothyroidism as prescribed by primary (4) Hyperlipemia ICD Codes: E78.5 - Hyperlipemia Status: Chronic Plan: cont pravastatin (5) Atrial fibrillation ICD Codes: I48.91 - Unspecified atrial fibrillation Status: Chronic Plan: on amiodarone, eliquis since last fall Discharge Planning will need rehab at discharge Problem Qualifiers (1) COPD (chronic obstructive pulmonary disease): Mery Pastrana MD Jun 24, 2017 14:37
[2017-06-24] MEDS ORDERED: RESP: ALBUTEROL 2.5 MG/3 ML NEB (PRN) NEB (15:00)
[2017-06-24] MEDS ORDERED: Albuterol Neb NEB ×2 (15:23)
[2017-06-24] MEDS ORDERED: DOXY100C PO (15:23)
[2017-06-24] MEDS ORDERED: KLOR10TA PO (15:23)
[2017-06-24] MEDS ORDERED: LEVO88TA2 PO (15:23)
[2017-06-24] MEDS ORDERED: SPIRCAP INH (15:23)
[2017-06-24] MEDS ORDERED: ACET500T13 PO (15:23)
[2017-06-24] MEDS ORDERED: SIME125 PO (15:23)
[2017-06-24] MEDS ORDERED: SENN187 PO (15:23)
[2017-06-24] MEDS ORDERED: RESP: ALBUTEROL 2.5 MG/3 ML NEB (SCH) NEB (16:00)
[2017-06-24] MEDS ORDERED: RESP: ALBUTEROL 2.5 MG/IPRATROPIUM 0.5 MG NEB (SCH) NEB (20:00)
[2017-06-24] MEDS ORDERED: POTASSIUM CHLORIDE 10 MEQ CONTROLLED RELEASE TAB PO SCH (21:00)
== END 2017-06-24 17:48 | DRG 603 ==
LOC: PHED 18:50 → PHEDA 20:52 → PH3A 23:36
PROVIDERS: ADMIT Legal Medicine; ATTEND Legal Medicine
DX: L03.115 Cellulitis of right lower limb (principal); Z99.81 Dependence on supplemental oxygen; I48.91 Unspecified atrial fibrillation; J44.9 Chronic obstructive pulmonary disease, unspecified; L03.116 Cellulitis of left lower limb; E03.9 Hypothyroidism, unspecified; E78.5 Hyperlipidemia, unspecified; E87.6 Hypokalemia; N18.9 Chronic kidney disease, unspecified; J31.0 Chronic rhinitis; K21.9 Gastro-esophageal reflux disease without esophagitis; M81.0 Age-related osteoporosis without current pathological fracture; F41.9 Anxiety disorder, unspecified; E55.9 Vitamin D deficiency, unspecified; D63.1 Anemia in chronic kidney disease; R60.0 Localized edema; K59.09 Other constipation; I12.9 Hypertensive chronic kidney disease with stage 1 through stage 4 chronic kidney disease, or unspecified chronic kidney disease; Z79.01 Long term (current) use of anticoagulants; Z87.891 Personal history of nicotine dependence; Z88.1 Allergy status to other antibiotic agents; Z88.2 Allergy status to sulfonamides
CPT/HCPCS: 73630; 80048; 80053; 80202; 81001; 82550; 82565; 82607; 83735; 83880; 84550; 85025; 86038; 87070; 87205; 93005; 94640; 94664; 96374; J0295; J2700; J3370; J7050; J7512; J7613

== ENCOUNTER 2017-08-31 19:16 | Emergency (ER) | payer MEDICARE ==
[~2017-08-31] VITALS: Ht 162.6 cm; Wt 46.5 kg
[~2017-08-31 19:16] MED LIST changes: +ACET500T13 PO; -ALPR.25 PO; +Albuterol Neb NEB; -CALC600T10 PO; -CETI10 PO; -CHOL1CAP6 PO; -DUONI NEB; -FE T325T PO; -FURO20 PO; -GAS-125C7 PO; -K-TA10TA5 PO; +KLOR10TA PO; -KLORCONEF PO; -METO2.5T7 PO; -MUCI600T PO; -PERI8.6T PO; -POTA10CA PO; -PRAV40 PO; -PRED10 PO; -PROB1TAB PO; +SENN187 PO; +SIME125 PO; +SPIRCAP INH; -STOO100T; -TAB-TAB PO; -Z.0.OXYGEN INH; -[UNRECOGNIZED DRUG - CODE] PO
[2017-08-31 19:40] VITALS: BP 149/60; PULSE 90; RESP 22; TEMP 97.9; O2SAT 84
--- NOTE | 2017-08-31 19:44 | PD ---
HPI Chief Complaint: Respiratory Symptoms Time Seen by Provider: 19:27 Travel History International Travel<30 days: No Contact w/Intl Traveler<30days: No Traveled to known affect area: No History of Present Illness HPI The patient is a 77-year-old female who presents to the emergency department for shortness of breath. The patient has a history of COPD and is followed by her hospitality host, Dr. Larkin, and her primary physician, Dr. Jarod Luna. The patient started having increasing shortness of breath several days ago and started prednisone and an antibiotic. However, her symptoms have progressed, she states her saturation was in the 80s on 3 L earlier today. She is normally on 3 L with an O2 sat greater than 90%. She does note increasing shortness of breath. She denies any new cough, chest pain , chest tightness, fever, chills, or sweats. Symptoms are moderate. Her symptoms were not improved with an increase in oxygen to 5 L at home. The patient denies any history of congestive heart failure, does have a history of atrial fibrillation in the past and is currently on Eliquis. [facility] Past Medical History Narrative Medical COPD, atrial fibrillation, hypothyroidism, hyperlipidemia Past Surgical History Narrative Surgical Cholecystectomy Social History Tobacco Use: No Allergies-Medications (Allergen,Severity, Reaction): Coded Allergies: Sulfa (Sulfonamide Antibiotics) (Verified Allergy, Unknown, 08/31/17) atorvastatin (Verified Allergy, Unknown, 08/31/17) ciprofloxacin (Verified Allergy, Unknown, 08/31/17) Reported Meds & Prescriptions Reported Meds & Active Scripts Active Reported Cefdinir 300 Mg Cap 300 Mg PO BID Probiotic (Saccharomyces Boulardii) 250 Mg Cap 250 Mg PO BID Prednisone 10 Mg Tab 10 Mg PO DAILY Metolazone 2.5 Mg Tab 2.5 Mg PO DAILY Spiriva Respimat Inh (Tiotropium Inh) 2.5 Mcg/Act Aero 2 Puff INH DAILY 2.5 mcg = 1 inhalation Calcium Citrate 250 Mg Calcium Tab 600 Mg PO Vitamin D3 (Cholecalciferol) 1,000 Unit Tab 1,000 Units PO DAILY Ferrous Sulfate 325 Mg (65 Mg Iron) Tablet 65 Mg PO DAILY Pravastatin 40 Mg Tab 40 Mg PO DAILY Furosemide 20 Mg Tab 20 Mg PO DAILY K-Tab (Potassium Chloride) 10 Meq Tab 30 Meq PO BID Levothyroxine (Levothyroxine Sodium) 88 Mcg Tab 88 Mcg PO DAILY Review of Systems Except as stated in HPI: all other systems reviewed are Neg General / Constitutional: No: Fever Cardiovascular: No: Chest Pain or Discomfort Respiratory: Positive: Shortness of Breath, Wheezing, No: Cough Gastrointestinal: No: Nausea, Vomiting, Abdominal Pain Genitourinary: No: Dysuria Musculoskeletal: Positive: Weakness, No: Edema Physical Exam Narrative GENERAL: Awake, alert, pleasant 77-year-old female who appears her stated age and is in no acute respiratory distress. SKIN: Focused skin assessment warm/dry. HEAD: Atraumatic. Normocephalic. EYES: Pupils equal and round. No scleral icterus. No injection or drainage. ENT: No nasal bleeding or discharge. Mucous membranes pink and moist. NECK: Trachea midline. No JVD. CARDIOVASCULAR: Regular rate and rhythm. No murmur appreciated. Heart rate in the 90s. RESPIRATORY: Mild tachypnea with a respiratory rate of 22. Diminished breath sounds throughout with prolonged expiratory phase and a few scattered wheezes. GASTROINTESTINAL: Abdomen soft, non-tender, nondistended. MUSCULOSKELETAL: No obvious deformities. No clubbing. No cyanosis. No edema. NEUROLOGICAL: Awake and alert. No obvious cranial nerve deficits. Motor grossly within normal limits. Normal speech. PSYCHIATRIC: Appropriate mood and affect; insight and judgment normal. Data Data Last Documented VS Vital Signs Date Time Temp Pulse Resp B/P (MAP) Pulse Ox O2 Delivery O2 Flow Rate FiO2 08/31/17 21:28 80 117/46 (69) 90 Nasal Cannula 2.50 08/31/17 20:15 20 08/31/17 19:40 97.9 Orders Orders Complete Blood Count With Diff (08/31/17 19:35) Comprehensive Metabolic Panel (08/31/17 19:35) B-Type Natriuretic Peptide (08/31/17 19:35) Act Partial Throm Time (Ptt) (08/31/17 19:35) Prothrombin Time / Inr (Pt) (08/31/17 19:35) Magnesium (Mg) (08/31/17 19:35) Ckmb (Isoenzyme) Profile (08/31/17 19:35) Troponin I (08/31/17 19:35) Arterial Blood Gas (Abg) (08/31/17 19:35) Iv Access Insert/Monitor (08/31/17 19:35) Electrocardiogram (08/31/17 19:35) Ecg Monitoring (08/31/17 19:35) Oximetry (08/31/17 19:35) Oxygen Administration (08/31/17 19:35) Chest, Single Ap (08/31/17 19:35) Sodium Chloride 0.9% Flush (Ns Flush) (08/31/17 19:45) Methylprednisolone So Succ Inj (Solumedr (08/31/17 19:45) Albuterol-Ipratropium Neb (Duoneb Neb) (08/31/17 19:45) Hospice Consult (08/31/17 20:34) CKMB (08/31/17 20:10) CKMB% (08/31/17 20:10) Labs Laboratory Tests Test 08/31/17 20:10 08/31/17 20:12 White Blood Count 6.3 TH/MM3 Red Blood Count 3.91 MIL/MM3 Hemoglobin 11.5 GM/DL Hematocrit 36.1 % Mean Corpuscular Volume 92.4 FL Mean Corpuscular Hemoglobin 29.4 PG Mean Corpuscular Hemoglobin Concent 31.8 % Red Cell Distribution Width 12.5 % Platelet Count 220 TH/MM3 Mean Platelet Volume 6.6 FL Neutrophils (%) (Auto) 96.3 % Lymphocytes (%) (Auto) 2.8 % Monocytes (%) (Auto) 0.7 % Eosinophils (%) (Auto) 0.0 % Basophils (%) (Auto) 0.2 % Neutrophils # (Auto) 6.1 TH/MM3 Lymphocytes # (Auto) 0.2 TH/MM3 Monocytes # (Auto) 0.0 TH/MM3 Eosinophils # (Auto) 0.0 TH/MM3 Basophils # (Auto) 0.0 TH/MM3 CBC Comment DIFF FINAL Differential Comment Prothrombin Time 10.1 SEC Prothromb Time International Ratio 1.0 RATIO Activated Partial Thromboplast Time 24.0 SEC Blood Urea Nitrogen 24 MG/DL Creatinine 1.00 MG/DL Random Glucose 127 MG/DL Total Protein 7.4 GM/DL Albumin 3.6 GM/DL Calcium Level 9.0 MG/DL Magnesium Level 2.0 MG/DL Alkaline Phosphatase 83 U/L Aspartate Amino Transf (AST/SGOT) 39 U/L Alanine Aminotransferase (ALT/SGPT) 35 U/L Total Bilirubin 0.3 MG/DL Sodium Level 133 MEQ/L Potassium Level 3.5 MEQ/L Chloride Level 82 MEQ/L Carbon Dioxide Level GREATER THAN 45.0 MEQ/L Anion Gap 6 MEQ/L Estimat Glomerular Filtration Rate 54 ML/MIN Total Creatine Kinase 164 U/L Creatine Kinase MB 5.3 NG/ML Troponin I LESS THAN 0.02 NG/ML B-Type Natriuretic Peptide 59 PG/ML Blood Gas Puncture Site RT RADIAL Blood Gas Patient Temperature 98.6 Blood Gas HCO3 50 mmol/L Blood Gas Base Excess 23.3 mmol/L Blood Gas Oxygen Saturation 92 % Arterial Blood pH 7.39 Arterial Blood Partial Pressure CO2 84 mmHG Arterial Blood Partial Pressure O2 74 mmHG Arterial Blood Oxygen Content 14.5 Vol % Arterial Blood Carboxyhemoglobin 2.2 % Arterial Blood Methemoglobin 1.3 % Blood Gas Hemoglobin 11.2 G/DL Oxygen Delivery Device NASAL CANNULA Blood Gas Liter Flow 2.5 L/M MDM Medical Decision Making Medical Screen Exam Complete: Yes Emergency Medical Condition: Yes Medical Record Reviewed: Yes Interpretation(s) EKG reveals normal sinus rhythm with a rate 84. Wavy baseline. Nonspecific T- wave changes. Laboratory Tests Test 08/31/17 20:10 08/31/17 20:12 White Blood Count 6.3 TH/MM3 Red Blood Count 3.91 MIL/MM3 Hemoglobin 11.5 GM/DL Hematocrit 36.1 % Mean Corpuscular Volume 92.4 FL Mean Corpuscular Hemoglobin 29.4 PG Mean Corpuscular Hemoglobin Concent 31.8 % Red Cell Distribution Width 12.5 % Platelet Count 220 TH/MM3 Mean Platelet Volume 6.6 FL Neutrophils (%) (Auto) 96.3 % Lymphocytes (%) (Auto) 2.8 % Monocytes (%) (Auto) 0.7 % Eosinophils (%) (Auto) 0.0 % Basophils (%) (Auto) 0.2 % Neutrophils # (Auto) 6.1 TH/MM3 Lymphocytes # (Auto) 0.2 TH/MM3 Monocytes # (Auto) 0.0 TH/MM3 Eosinophils # (Auto) 0.0 TH/MM3 Basophils # (Auto) 0.0 TH/MM3 CBC Comment DIFF FINAL Differential Comment Prothrombin Time 10.1 SEC Prothromb Time International Ratio 1.0 RATIO Activated Partial Thromboplast Time 24.0 SEC Blood Urea Nitrogen 24 MG/DL Creatinine 1.00 MG/DL Random Glucose 127 MG/DL Total Protein 7.4 GM/DL Albumin 3.6 GM/DL Calcium Level 9.0 MG/DL Magnesium Level 2.0 MG/DL Alkaline Phosphatase 83 U/L Aspartate Amino Transf (AST/SGOT) 39 U/L Alanine Aminotransferase (ALT/SGPT) 35 U/L Total Bilirubin 0.3 MG/DL Sodium Level 133 MEQ/L Potassium Level 3.5 MEQ/L Chloride Level 82 MEQ/L Carbon Dioxide Level GREATER THAN 45.0 MEQ/L Anion Gap 6 MEQ/L Estimat Glomerular Filtration Rate 54 ML/MIN Total Creatine Kinase 164 U/L Creatine Kinase MB 5.3 NG/ML Troponin I LESS THAN 0.02 NG/ML B-Type Natriuretic Peptide 59 PG/ML Blood Gas Puncture Site RT RADIAL Blood Gas Patient Temperature 98.6 Blood Gas HCO3 50 mmol/L Blood Gas Base Excess 23.3 mmol/L Blood Gas Oxygen Saturation 92 % Arterial Blood pH 7.39 Arterial Blood Partial Pressure CO2 84 mmHG Arterial Blood Partial Pressure O2 74 mmHG Arterial Blood Oxygen Content 14.5 Vol % Arterial Blood Carboxyhemoglobin 2.2 % Arterial Blood Methemoglobin 1.3 % Blood Gas Hemoglobin 11.2 G/DL Oxygen Delivery Device NASAL CANNULA Blood Gas Liter Flow 2.5 L/M Last Impressions Chest X-Ray 08/31/171934 Signed Impressions: Service Date/Time: Thursday, August 31, 2017 20:56 - CONCLUSION: 1. No active disease. Underlying emphysema with hyperinflation. Catalino Stanley MD Differential Diagnosis Differential diagnosis includes COPD exacerbation failed outpatient therapy, hypoxemia, pneumonia, bronchitis, congestive heart failure, pulmonary embolism, pleural effusion, pulmonary edema, ACS. Narrative Course IV was established, labs are drawn and sent, and the patient was placed on cardiac telemetry monitoring and continuous pulse oximetry monitoring. EKG was ordered and interpreted. Chest x-ray was obtained. The patient was administered Solu-Medrol and duo nebs. ABG was obtained. ABG reveals a pH of 7.390, PCO2 84.2, PO2 of 73.7 on 2.5 L, and bicarb of 49.9. ABG reveals compensated respiratory acidosis, probable chronic retainer from COPD. Chest x-ray reveals chronic changes, no acute findings. Laboratory evaluation was noted, no significant findings except for chronic CO2 retention. I did discussion with the patient regarding her COPD and progressing symptoms, after discussion, she would like to speak with hospice. Therefore, a consult was placed to the hospitalist hospice service, I spoke with the nurse who will evaluate the patient in the emergency department. We will await final disposition until patient speaks with hospice. After the patient discussed her options with hospice, she will be transferred to the hospice care center. I did go over her laboratory findings and x-ray findings. Patient is comfortable with this plan of care. Diagnosis Primary Impression: COPD exacerbation Additional Impression: Dyspnea Qualified Codes: R06.00 - Dyspnea, unspecified Disposition: 70 TRANSFER TO OTHER FACILITY (Transfer to hospice care center) Condition: Stable Luis A Greenfield MD Aug 31, 2017 19:44
[2017-08-31] MEDS ORDERED: SODIUM CHLORIDE 0.9% FLUSH 10 ML FLUSH IVF PRN (19:45)
[2017-08-31] MEDS ORDERED: methylPREDNISolone SOD SUCC 125 MG/2 ML VIAL IV PUSH ONE (19:45)
[2017-08-31] MEDS ORDERED: PRAV40TA2 PO (19:49)
[2017-08-31] MEDS ORDERED: CALC250T PO (19:49)
[2017-08-31] MEDS ORDERED: METO2.5T PO (19:49)
[2017-08-31] MEDS ORDERED: CEFD300C PO (19:49)
[2017-08-31] MEDS ORDERED: FERR325T18 PO (19:49)
[2017-08-31] MEDS ORDERED: LEVO88TA2 PO (19:49)
[2017-08-31] MEDS ORDERED: SACC1CAP3 PO (19:49)
[2017-08-31] MEDS ORDERED: K-TA10TA PO (19:49)
[2017-08-31] MEDS ORDERED: PRED10 PO (19:49)
[2017-08-31] MEDS ORDERED: TIOT12.9 INH (19:49)
[2017-08-31] MEDS ORDERED: VITA100064 PO (19:49)
[2017-08-31] MEDS ORDERED: FURO20TA PO (19:49)
[2017-08-31] MEDS: RESP: ALBUTEROL 2.5 MG/IPRATROPIUM 0.5 MG NEB (SCH) INH (20:08)
[2017-08-31 20:15] VITALS: RESP 20; O2SAT 96; O2SAT 98
[2017-08-31 20:17] LABS: AUTOMATED NEUTROPHIL # 6.1 TH/MM3 (1.8-7.7); BASOPHIL % 0.2 % (0.0-2.0); HEMATOCRIT 36.1 % (35.0-46.0); HEMOGLOBIN 11.5 GM/DL (11.6-15.3); LYMPH % 2.8 % (9.0-44.0); LYMPHOCYTE # 0.2 TH/MM3 (1.0-4.8); MEAN CELL VOLUME 92.4 FL (80.0-100.0); MEAN CORPUSCULAR HEMOGLOBIN 29.4 PG (27.0-34.0); MEAN CORPUSCULAR HGB CONC 31.8 % (32.0-36.0); MEAN PLATELET VOLUME 6.6 FL (7.0-11.0); MONO % 0.7 % (0.0-8.0); NEUT % 96.3 % (16.0-70.0); PLATELET COUNT 220 TH/MM3 (150-450); RED BLOOD COUNT 3.91 MIL/MM3 (4.00-5.30); RED CELL DISTRIBUTION WIDTH 12.5 % (11.6-17.2); WHITE BLOOD COUNT 6.3 TH/MM3 (4.0-11.0)
[2017-08-31 20:25] LABS: CHLORIDE 82 MEQ/L (98-107); SODIUM (NA) 133 MEQ/L (136-145)
[2017-08-31 20:28] LABS: ALBUMIN 3.6 GM/DL (3.4-5.0)
[2017-08-31 20:29] LABS: BLOOD UREA NITROGEN 24 MG/DL (7-18); GLUCOSE,RANDOM 127 MG/DL (74-106); PROTHROMBIN TIME - PATIENT 10.1 SEC (9.8-11.6)
[2017-08-31 20:32] LABS: ALT (GPT) 35 U/L (10-53); AST (GOT) 39 U/L (15-37); GLOMERULAR FILTRATION RATE 54 ML/MIN (>89)
[2017-08-31 20:33] LABS: TOTAL BILIRUBIN ADULT 0.3 MG/DL (0.2-1.0); TOTAL PROTEIN 7.4 GM/DL (6.4-8.2)
[2017-08-31 20:35] LABS: ALKALINE PHOSPHATASE 83 U/L (45-117)
[2017-08-31 20:37] LABS: TROPONIN I LESS THAN 0.02 NG/ML (0.02-0.05)
[2017-08-31 21:03] LABS: BICARBONATE GREATER THAN 45.0 MEQ/L (21.0-32.0)
[2017-08-31 21:28] VITALS: BP 117/46; PULSE 80; O2SAT 90
--- NOTE | 2017-08-31 21:28 | RADRPT ---
EXAM DATE/TIME: 08/31/2017 20:56 [facility] COMPARISON: No previous studies available for comparison. INDICATIONS : Shortness of breath MEDICAL HISTORY : Emphysema. SURGICAL HISTORY : None. ENCOUNTER: Initial ACUITY: 1 week PAIN SCORE: 0/10 LOCATION: Bilateral chest FINDINGS: A single view of the chest demonstrates the lungs to be symmetrically aerated without evidence of mas s, infiltrate or effusion. The cardiomediastinal contours are unremarkable. Osseous structures are intact. CONCLUSION: 1. No active disease. Underlying emphysema with hyperinflation. Catalino Stanley MD on August 31, 2017 at 21:25 Board Certified Radiologist. This report was verified electronically.
--- NOTE | 2017-08-31 21:38 | EKG ---
Date Performed: 08/31/2017 Time Performed: 20:16:50 PTAGE: 77 years EKG: Baseline artifact present Sinus rhythm WITH SHORT [place] INTERVAL NONSPECIFIC T-WAVE ABNORMALITY BORDERLINE ECG NO PREVIOUS TRACING DOCTOR: Nicholas Nunn Interpretating Date/Time 08/31/2017 21:37:56
[2017-09-01 00:42] VITALS: BP 122/60
== END 2017-09-01 00:45 | disposition short-term general hospital (02) ==
LOC: MERGE 19:16 → PHEFT 19:16
DX: J44.1 Chronic obstructive pulmonary disease with (acute) exacerbation (principal); R06.00 Dyspnea, unspecified; I48.91 Unspecified atrial fibrillation; E03.9 Hypothyroidism, unspecified; E78.5 Hyperlipidemia, unspecified; R94.31 Abnormal electrocardiogram [ECG] [EKG]; Z88.2 Allergy status to sulfonamides; Z88.8 Allergy status to other drugs, medicaments and biological substances; Z79.899 Other long term (current) drug therapy
CPT/HCPCS: 36600; 71045; 80053; 82550; 82552; 82805; 83735; 83880; 84484; 85025; 85610; 85730; 93005; 94640; 94664; 96374; 99285; J2930